=== PATIENT | male | born 1965 | race African-American/Black ===

== ENCOUNTER 2018-06-15 13:14 | Inpatient (IN) | payer OTHER ==
[2018-06-15 13:38] VITALS: BMI 29.2
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
[2018-06-15] MEDS ORDERED: MAG HYDROX/AL HYDROX/SIMETH 30 ML UNIT-DOSE CUP PO PRN (18:40)
[2018-06-15] MEDS ORDERED: MENTHOL/PHENOL 1 EACH UD MM PRN (18:40)
[2018-06-15] MEDS ORDERED: LOPERAMIDE HCL 2 MG CAPSULE PO PRN (18:40)
[2018-06-15] MEDS ORDERED: MAGNESIUM CITRATE 300 ML BOTTLE PO PRN (18:40)
[2018-06-15] MEDS ORDERED: P-EPHED 60MG/TRIPROLIDI 2.5MG TABLET PO PRN (18:40)
[2018-06-15] MEDS ORDERED: diazePAM 5 MG TABLET PO PRN (18:40)
[2018-06-15] MEDS ORDERED: hydrOXYzine PAMOATE 50 MG CAPSULE (FP) PO PRN (18:40)
[2018-06-15] MEDS ORDERED: guaiFENesin/D-METHORPHAN HB 10 ML UNIT-DOSE CUPS PO PRN (18:40)
[2018-06-15] MEDS ORDERED: NICOTINE POLACRILEX 2 MG GUM BC PRN (18:40)
[2018-06-15] MEDS ORDERED: MAGNESIUM HYDROX 2400MG/30ML ORAL SUSPENSION 30 ML CUP PO PRN (18:40)
[2018-06-15] MEDS ORDERED: ACETAMINOPHEN 325 MG TABLET (FP) PO PRN (18:40)
[2018-06-15] MEDS ORDERED: diazePAM 5 MG TABLET PO ONE (19:00)
[2018-06-15] MEDS: NICOTINE 21 MG/24 HOURS TOPICAL PATCH TD SCH (22:49)
[2018-06-15] MEDS: THIAMINE HCL 100 MG TABLET (FP) PO SCH (22:49)
[2018-06-15] MEDS: diazePAM 5 MG TABLET PO SCH (22:49)
[2018-06-15 23:01] LABS: URINE APPEARANCE CLEAR; URINE BILIRUBIN NEGATIVE (<2.0 mg/dL); URINE COLOR STRAW; URINE GLUCOSE (UA) 3+ (NEGATIVE); URINE KETONE NEGATIVE (NEGATIVE); URINE LEUK ESTERASE NEGATIVE (NEGATIVE); URINE NITRITE NEGATIVE (NEGATIVE); URINE UROBILINOGEN NEGATIVE mg/dL (0.2-1.0)
[2018-06-15 23:06] LABS: URINE PROTEIN 1+ (NEGATIVE)
[2018-06-15 23:13] LABS: URINE MUCUS RARE
[2018-06-16] MEDS: diazePAM 5 MG TABLET PO SCH ×3 (05:54→22:54)
[2018-06-16] MEDS ORDERED: INSULIN (NOVOLOG) ASPART 100 UNITS/ML 10ML VIAL ONE ×5 (06:53→21:57)
--- NOTE | 2018-06-16 07:46 | CONSULT ---
[facility] Psychiatric Consult - Data Date of interview: 06/16/18 Admission source: [facility] Identifying data: This is 53 years old male, obese, singlem unsmployed, homlee, on SSI, with psychiatric hospitalization history, with heroin,alcohol,cocaine, nicotine dependence,seeking detox,reporting withdrawal symptoms, Substance Abuse History: - Smoking Cessation. Smoking history: Current every day smoker. Have you smoked in the past 12 months: Yes. Aproximately how many cigarettes per day: 20. Cigars Per Day: 0. Hx Chewing Tobacco Use: No. Initiated information on smoking cessation: Yes. 'Breaking Loose' booklet given : 06/15/18. - Substance & Tx. History. Hx Alcohol Use: Yes. Hx Substance Use : Yes. Substance Use Type: Alcohol, Cocaine, Heroin. Hx Substance Use Treatment: Yes (04/11 in march completed). - Substances Abused. Heroin. Route: Inhalation. Frequency: 1-2 times per week. Amount used: 1 bag. Age of first use: 25. Date of Last Use: 06/13/18. Alcohol. Route: Oral. Frequency: Daily. Amount used: 2pints of whisky,bacardi/2 of 6packs of 12 ozs of beer. Age of first use: 12. Date of Last Use: 06/14/18. Cocaine. Route : Smoking. Frequency: Daily. Amount used: 200$. Age of first use: 25. Date of Last Use: 06/14/18 Medical History: Obesity, HTN, DM-1 Psychiatric History: Patient reports history of depression and anxiety, taking prior to admission Depakote 500mg po bid, reports most recent psychiatric admission on 2017 at [facility] for safety, [email or web address] mitivated to continue preadmission medications Physical/Sexual Abuse/Trauma History: Denies Additional Comment: Depakote 500mg po bid, Mental Status Exam - Mental Status Exam Alert and Oriented to: Place, Person Cognitive Function: Fair Patient Appearance: Well Groomed Mood: Apprehensive Affect: Mood Congruent Patient Behavior: Cooperative Speech Pattern: Appropriate Voice Loudness: Normal Thought Process: Goal Oriented Thought Disorder: Being Controlled Hallucinations: Denies Suicidal Ideation: Denies Homicidal Ideation: Denies Insight/Judgement: Fair Sleep: Difficulty falling asleep Appetite: Weight gain Muscle strength/Tone: Mild Hypotonicity Gait/Station: Normal Additional Comments: Depakote 500mg po bid, Psychiatric Findings - Problem List ([place] 1, 2,3) (1) Drug-induced mood disorder Current Visit: Yes Status: Acute (2) Bipolar disorder Current Visit: Yes Status: Suspected (3) Alcohol dependence Current Visit: Yes Status: Acute (4) Alcohol dependence with uncomplicated withdrawal Current Visit: Yes Status: Acute (5) Cocaine dependence Current Visit: Yes Status: Acute (6) Opioid dependence Current Visit: Yes Status: Acute - Initial Treatment Plan Initial Treatment Plan: Depakote 500mg po bid,
[2018-06-16] MEDS: INSULIN SLIDING SCALE (NOVOLOG) 1 VIAL SQ SCH ×4 (07:57→22:58)
[2018-06-16 09:57] LABS: ANION GAP 8 (8-16); BLOOD UREA NITROGEN 19 mg/dL (7-18); CALCIUM 8.3 mg/dL (8.5-10.1); CHLORIDE 103 mmol/L (98-107); CO2 29 mmol/L (21-32); SGPT/ALT 31 U/L (12-78); SODIUM 140 mmol/L (136-145)
[2018-06-16 10:00] LABS: ALK PHOS 85 U/L (45-117); BILIRUBIN,TOTAL 0.3 mg/dL (0.2-1.0); TOT PROT 6.1 g/dl (6.4-8.2)
[2018-06-16 10:07] LABS: POTASSIUM 4.1 mmol/L (3.5-5.1); SGOT/AST 22 U/L (15-37)
[2018-06-16 10:23] LABS: HEMATOCRIT 44.2 % (35.4-49); HEMOGLOBIN 14.6 GM/dL (11.7-16.9); MCH 27.3 pg (25.7-33.7); MCHC 33.1 g/dl (32.0-35.9); MEAN CELL VOLUME 82.5 fl (80-96); MEAN PLT VOLUME 11.2 fl (7.5-11.1); PLATELET COUNT 192 K/MM3 (134-434); RBC 5.35 M/mm3 (4.00-5.60); RDW 15.4 % (11.9-15.9); WHITE BLOOD COUNT 7.9 K/mm3 (4.0-10.0)
[2018-06-16] MEDS: NICOTINE 21 MG/24 HOURS TOPICAL PATCH TD SCH (10:34)
[2018-06-16] MEDS: PRENATAL VITAMINS W/ FOLIC ACID TABLET (FP) PO SCH (10:38)
[2018-06-16 10:47] LABS: GLUCOSE,RANDOM 321 mg/dL (74-106)
--- NOTE | 2018-06-16 11:32 | PN ---
S CIWA - CIWA Score Nausea/Vomitin Muscle Tremors: 3 Anxiety: 3 Agitation: 2 Paroxysmal Sweats: 1-Minimal Palms Moist Orientation: 0-Oriented Tacttile Disturbances: 1-Very Mild Itch/Numbness Auditory Disturbances: 1-Very Mild Visual Disturbances: 0-None Headache: 2-Mild CIWA-Ar Total Score: 16 S Progress Note (SOAP) Subjective: alert,irritable,anxious,interrupted sleep,tremor,pain in the body Objective: 06/16/18 11:28 Vital Signs Temperature 98.1 F 06/16/18 06:00 Pulse Rate 84 06/16/18 06:00 Respiratory Rate 20 06/16/18 06:00 Blood Pressure 156/101 06/16/18 06:00 O2 Sat by Pulse Oximetry (%) ekg nsr qt/qrc 406/431 no chest pain,no sob,no dizziness Laboratory Last Values WBC 7.9 K/mm3 (4.0-10.0) 06/16/18 07:00 RBC 5.35 M/mm3 (4.00-5.60) 06/16/18 07:00 Hgb 14.6 GM/dL (11.7-16.9) 06/16/18 07:00 Hct 44.2 % (35.4-49) 06/16/18 07:00 MCV 82.5 fl (80-96) 06/16/18 07:00 MCH 27.3 pg (25.7-33.7) 06/16/18 07:00 MCHC 33.1 g/dl (32.0-35.9) 06/16/18 07:00 RDW 15.4 % (11.9-15.9) 06/16/18 07:00 Sodium 140 mmol/L (136-145) 06/16/18 07:00 Potassium 4.1 mmol/L (3.5-5.1) 06/16/18 07:00 Chloride 103 mmol/L (98-107) 06/16/18 07:00 Carbon Dioxide 29 mmol/L (21-32) 06/16/18 07:00 Anion Gap 8 (8-16) 06/16/18 07:00 BUN 19 mg/dL (7-18) H 06/16/18 07:00 Creatinine 2.0 mg/dL (0.7-1.3) H 06/16/18 07:00 Creat Clearance w eGFR 35.13 (>60) 06/16/18 07:00 POC Glucometer 317 UNITS (80-120) 06/16/18 05:55 Random Glucose 321 mg/dL (74-106) H* 06/16/18 07:00 Calcium 8.3 mg/dL (8.5-10.1) L 06/16/18 07:00 Total Bilirubin 0.3 mg/dL (0.2-1.0) 06/16/18 07:00 AST 22 U/L (15-37) 06/16/18 07:00 ALT 31 U/L (12-78) 06/16/18 07:00 Alkaline Phosphatase 85 U/L (45-117) 06/16/18 07:00 Total Protein 6.1 g/dl (6.4-8.2) L 06/16/18 07:00 Albumin 3.0 g/dl (3.4-5.0) L 06/16/18 07:00 Urine Color Straw 06/15/18 22:40 Urine Appearance Clear 06/15/18 22:40 Urine pH 6.0 (5.0-8.0) 06/15/18 22:40 Ur Specific [place] 1.018 (1.001-1.035) 06/15/18 22:40 Urine Protein 1+ (NEGATIVE) H 06/15/18 22:40 Urine Glucose (UA) 3+ (NEGATIVE) H 06/15/18 22:40 Urine Ketones Negative (NEGATIVE) 06/15/18 22:40 Urine Blood Negative (NEGATIVE) 06/15/18 22:40 Urine Nitrite Negative (NEGATIVE) 06/15/18 22:40 Urine Bilirubin Negative (<2.0 mg/dL) 06/15/18 22:40 Urine Urobilinogen Negative mg/dL (0.2-1.0) 06/15/18 22:40 Ur Leukocyte Esterase Negative (NEGATIVE) 06/15/18 22:40 Urine WBC (Auto) <1 /hpf (3-5) 06/15/18 22:40 Urine RBC (Auto) None /hpf (0-3) 06/15/18 22:40 Urine Mucus Rare 06/15/18 22:40 RPR Titer Nonreactive (NONREACTIVE) 06/16/18 07:00 Assessment: 06/16/18 11:31 withdrawal symptom Plan: continue detox,bgm monitoring with insulin coverage,cane ambulation
--- NOTE | 2018-06-16 11:43 | EKG ---
Test Reason : Blood Pressure : / mmHG Vent. Rate : 068 BPM Atrial Rate : 068 BPM P-R Int : 138 ms QRS Dur : 088 ms QT Int : 406 ms P-R-T Axes : 023 002 -15 degrees QTc Int : 431 ms NORMAL SINUS RHYTHM POSSIBLE LEFT ATRIAL ENLARGEMENT CANNOT RULE OUT ANTERIOR INFARCT , AGE UNDETERMINED ABNORMAL ECG NO PREVIOUS ECGS AVAILABLE Confirmed by FRIDA RICHARDSON MD ([id number]) on 06/16/2018 11:42:57 AM Referred By: Confirmed By:FRIDA RICHARDSON MD
--- NOTE | 2018-06-16 14:44 | EKG ---
Test Reason : Blood Pressure : / mmHG Vent. Rate : 066 BPM Atrial Rate : 066 BPM P-R Int : 134 ms QRS Dur : 092 ms QT Int : 398 ms P-R-T Axes : 018 -04 -07 degrees QTc Int : 417 ms NORMAL SINUS RHYTHM NORMAL ECG WHEN COMPARED WITH ECG OF 15-JUN-2018 20:13, NO SIGNIFICANT CHANGE WAS FOUND Confirmed by FRIDA RICHARDSON MD ([id number]) on 06/16/2018 2:43:54 PM Referred By: Confirmed By:FRIDA RICHARDSON MD
[2018-06-16] MEDS: THIAMINE HCL 100 MG TABLET (FP) PO SCH (22:54)
[2018-06-16] MEDS: INSULIN (LEVEMIR) 100 UNITS/ML UNITS SQ SCH (22:58)
[2018-06-17] MEDS: INSULIN SLIDING SCALE (NOVOLOG) 1 VIAL SQ SCH ×4 (08:04→23:04)
--- NOTE | 2018-06-17 10:31 | PN ---
S CIWA - CIWA Score Nausea/Vomitin Muscle Tremors: 3 Anxiety: 2 Agitation: 2 Paroxysmal Sweats: 1-Minimal Palms Moist Orientation: 0-Oriented Tacttile Disturbances: 1-Very Mild Itch/Numbness Auditory Disturbances: 1-Very Mild Visual Disturbances: 0-None Headache: 2-Mild CIWA-Ar Total Score: 15 S Progress Note (SOAP) Subjective: alert,irritable,anxious,interrupted sleep,tremor Objective: 06/17/18 10:28 Vital Signs Temperature 97.3 F L 06/17/18 09:08 Pulse Rate 65 06/17/18 09:08 Respiratory Rate 18 06/17/18 09:08 Blood Pressure 146/84 06/17/18 09:08 O2 Sat by Pulse Oximetry (%) 06/17/18 10:29 Laboratory Last Values WBC 7.9 K/mm3 (4.0-10.0) 06/16/18 07:00 RBC 5.35 M/mm3 (4.00-5.60) 06/16/18 07:00 Hgb 14.6 GM/dL (11.7-16.9) 06/16/18 07:00 Hct 44.2 % (35.4-49) 06/16/18 07:00 MCV 82.5 fl (80-96) 06/16/18 07:00 MCH 27.3 pg (25.7-33.7) 06/16/18 07:00 MCHC 33.1 g/dl (32.0-35.9) 06/16/18 07:00 RDW 15.4 % (11.9-15.9) 06/16/18 07:00 Plt Count 192 K/MM3 (134-434) 06/16/18 07:00 MPV 11.2 fl (7.5-11.1) H 06/16/18 07:00 Sodium 140 mmol/L (136-145) 06/16/18 07:00 Potassium 4.1 mmol/L (3.5-5.1) 06/16/18 07:00 Chloride 103 mmol/L (98-107) 06/16/18 07:00 Carbon Dioxide 29 mmol/L (21-32) 06/16/18 07:00 Anion Gap 8 (8-16) 06/16/18 07:00 BUN 19 mg/dL (7-18) H 06/16/18 07:00 Creatinine 2.0 mg/dL (0.7-1.3) H 06/16/18 07:00 Creat Clearance w eGFR 35.13 (>60) 06/16/18 07:00 POC Glucometer 195 UNITS (80-120) 06/17/18 05:52 Random Glucose 321 mg/dL (74-106) H* 06/16/18 07:00 Calcium 8.3 mg/dL (8.5-10.1) L 06/16/18 07:00 Total Bilirubin 0.3 mg/dL (0.2-1.0) 06/16/18 07:00 AST 22 U/L (15-37) 06/16/18 07:00 ALT 31 U/L (12-78) 06/16/18 07:00 Alkaline Phosphatase 85 U/L (45-117) 06/16/18 07:00 Total Protein 6.1 g/dl (6.4-8.2) L 06/16/18 07:00 Albumin 3.0 g/dl (3.4-5.0) L 06/16/18 07:00 Urine Color Straw 06/15/18 22:40 Urine Appearance Clear 06/15/18 22:40 Urine pH 6.0 (5.0-8.0) 06/15/18 22:40 Ur Specific [place] 1.018 (1.001-1.035) 06/15/18 22:40 Urine Protein 1+ (NEGATIVE) H 06/15/18 22:40 Urine Glucose (UA) 3+ (NEGATIVE) H 06/15/18 22:40 Urine Ketones Negative (NEGATIVE) 06/15/18 22:40 Urine Blood Negative (NEGATIVE) 06/15/18 22:40 Urine Nitrite Negative (NEGATIVE) 06/15/18 22:40 Urine Bilirubin Negative (<2.0 mg/dL) 06/15/18 22:40 Urine Urobilinogen Negative mg/dL (0.2-1.0) 06/15/18 22:40 Ur Leukocyte Esterase Negative (NEGATIVE) 06/15/18 22:40 Urine WBC (Auto) <1 /hpf (3-5) 06/15/18 22:40 Urine RBC (Auto) None /hpf (0-3) 06/15/18 22:40 Urine Mucus Rare 06/15/18 22:40 RPR Titer Nonreactive (NONREACTIVE) 06/16/18 07:00 Assessment: 06/17/18 10:30 withdrawal symptom Plan: continue detox
[2018-06-17] MEDS: diazePAM 5 MG TABLET PO SCH ×2 (10:38→22:44)
[2018-06-17] MEDS: PRENATAL VITAMINS W/ FOLIC ACID TABLET (FP) PO SCH (10:38)
[2018-06-17] MEDS: NICOTINE 21 MG/24 HOURS TOPICAL PATCH TD SCH (10:39)
[2018-06-17] MEDS ORDERED: INSULIN (NOVOLOG) ASPART 100 UNITS/ML 10ML VIAL ONE (12:00)
[2018-06-17] MEDS: IBUPROFEN 400 MG TABLET (FP) PO PRN (14:14)
[2018-06-17] MEDS: MELATONIN 5 MG TABLETS PO PRN (22:44)
[2018-06-17] MEDS: THIAMINE HCL 100 MG TABLET (FP) PO SCH (22:44)
[2018-06-17] MEDS: INSULIN (LEVEMIR) 100 UNITS/ML UNITS SQ SCH (22:45)
[2018-06-18] MEDS: INSULIN SLIDING SCALE (NOVOLOG) 1 VIAL SQ SCH ×4 (08:00→22:41)
[2018-06-18] MEDS: NICOTINE 21 MG/24 HOURS TOPICAL PATCH TD SCH (10:25)
[2018-06-18] MEDS: PRENATAL VITAMINS W/ FOLIC ACID TABLET (FP) PO SCH (10:25)
[2018-06-18] MEDS: diazePAM 5 MG TABLET PO SCH ×2 (10:25→22:41)
--- NOTE | 2018-06-18 11:30 | PN ---
S Progress Note (SOAP) Subjective: alert,irritable,anxious,interrupted sleep Objective: 06/18/18 11:28 Vital Signs Temperature 97.2 F L 06/18/18 09:58 Pulse Rate 63 06/18/18 09:58 Respiratory Rate 16 06/18/18 09:58 Blood Pressure 138/85 06/18/18 09:58 O2 Sat by Pulse Oximetry (%) 06/18/18 11:33 bgm 196 Assessment: 06/18/18 11:33 withdrawal symptom Plan: continue detox,chest xray today for positive ppd,discharge in am
[2018-06-18] MEDS ORDERED: INSULIN (NOVOLOG) ASPART 100 UNITS/ML 10ML VIAL ONE ×3 (11:55→22:43)
[2018-06-18] MEDS: THIAMINE HCL 100 MG TABLET (FP) PO SCH (22:41)
[2018-06-18] MEDS: INSULIN (LEVEMIR) 100 UNITS/ML UNITS SQ SCH (22:45)
[2018-06-18] MEDS: MELATONIN 5 MG TABLETS PO PRN (22:45)
[2018-06-18] MEDS: IBUPROFEN 400 MG TABLET (FP) PO PRN (22:47)
[2018-06-19] MEDS: INSULIN SLIDING SCALE (NOVOLOG) 1 VIAL SQ SCH (08:14)
--- NOTE | 2018-06-19 09:19 | PN ---
S Progress Note (SOAP) Subjective: alert,no compliant Objective: 06/19/18 09:16 Vital Signs Temperature 97.3 F L 06/19/18 07:08 Pulse Rate 72 06/19/18 07:08 Respiratory Rate 18 06/19/18 07:08 Blood Pressure 159/89 06/19/18 07:08 O2 Sat by Pulse Oximetry (%) Assessment: 06/19/18 09:17 detox completed,no withdrawal symptom Plan: discharge today,follow up with after care program as arrangement
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
[2018-06-19] MEDS: PRENATAL VITAMINS W/ FOLIC ACID TABLET (FP) PO SCH (09:26)
[2018-06-19] MEDS: NICOTINE 21 MG/24 HOURS TOPICAL PATCH TD SCH (09:27)
[2018-06-19 09:59] VITALS: BP 167/94; PULSE 64; TEMP 96.4
[2018-06-19] MEDS ORDERED: diazePAM 5 MG TABLET PO SCH (10:00)
== END 2018-06-19 10:45 | disposition home or self-care (01) | DRG 773 ==
LOC: YASAS 13:14 → Y6N 18:40
PROVIDERS: ADMIT Surgery; ATTEND Surgery
PROC: HZ2ZZZZ Detoxification Services for Substance Abuse Treatment (ICD-10-PCS; principal; 2018-06-15)
DX: F11.20 Opioid dependence, uncomplicated (principal); F10.230 Alcohol dependence with withdrawal, uncomplicated; F14.20 Cocaine dependence, uncomplicated; F17.210 Nicotine dependence, cigarettes, uncomplicated; F19.24 Other psychoactive substance dependence with psychoactive substance-induced mood disorder; F31.9 Bipolar disorder, unspecified; I10 Essential (primary) hypertension; E11.9 Type 2 diabetes mellitus without complications; Z79.4 Long term (current) use of insulin; Q60.0 Renal agenesis, unilateral; Z87.828 Personal history of other (healed) physical injury and trauma; Z91.14 Patient's other noncompliance with medication regimen; Z59.0 Homelessness
CPT/HCPCS: 36415; 71046-TC-FY; 80053; 81003; 81015; 82962; 85027; 86593; 93005; 93010

== ENCOUNTER 2018-12-02 12:12 | Inpatient (IN) | payer OTHER ==
[2018-12-02 12:31] VITALS: BMI 29.5
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
[2018-12-02] MEDS ORDERED: NICOTINE POLACRILEX 2 MG GUM BUC PRN (14:43)
[2018-12-02] MEDS ORDERED: P-EPHED 60MG/TRIPROLIDI 2.5MG TABLET PO PRN (14:43)
[2018-12-02] MEDS ORDERED: guaiFENesin/D-METHORPHAN HB 10 ML UNIT-DOSE CUPS PO PRN (14:43)
[2018-12-02] MEDS ORDERED: MENTHOL/PHENOL 1 EACH UD MM PRN (14:43)
[2018-12-02] MEDS ORDERED: MAGNESIUM CITRATE 300 ML BOTTLE PO PRN (14:43)
[2018-12-02] MEDS ORDERED: MAG HYDROX/AL HYDROX/SIMETH 30 ML UNIT-DOSE CUP PO PRN (14:43)
[2018-12-02] MEDS ORDERED: MAGNESIUM HYDROX 2400MG/30ML ORAL SUSPENSION 30 ML CUP PO PRN (14:43)
[2018-12-02] MEDS ORDERED: ACETAMINOPHEN 325 MG TABLET (FP) PO PRN (14:43)
[2018-12-02] MEDS: diazePAM 5 MG TABLET PO PRN (15:53)
[2018-12-02] MEDS: INSULIN SLIDING SCALE (NOVOLOG) 1 VIAL SQ SCH ×2 (17:03→21:39)
[2018-12-02] MEDS: diazePAM 5 MG TABLET PO SCH (21:38)
[2018-12-02] MEDS: cloNIDine HCL 0.1 MG TABLET PO PRN (21:38)
[2018-12-02] MEDS: THIAMINE HCL 100 MG TABLET (FP) PO SCH (21:38)
[2018-12-02] MEDS: BACITRACIN/POLYMYXIN B SULFATE 15 GM TUBE TP SCH (21:38)
[2018-12-02] MEDS: INSULIN (LEVEMIR) 100 UNITS/ML UNITS SQ SCH (21:39)
[2018-12-02] MEDS ORDERED: MELATONIN 5 MG TABLETS PO PRN (22:00)
[2018-12-03] MEDS: diazePAM 5 MG TABLET PO SCH ×3 (05:36→21:36)
[2018-12-03] MEDS: INSULIN SLIDING SCALE (NOVOLOG) 1 VIAL SQ SCH ×4 (06:00→21:16)
[2018-12-03 10:24] LABS: HEMATOCRIT 47.5 % (35.4-49); HEMOGLOBIN 14.7 GM/dL (11.7-16.9); MCH 26.1 pg (25.7-33.7); MCHC 31.1 g/dl (32.0-35.9); MEAN CELL VOLUME 83.9 fl (80-96); MEAN PLT VOLUME 11.2 fl (7.5-11.1); PLATELET COUNT 186 K/MM3 (134-434); RBC 5.66 M/mm3 (4.00-5.60); RDW 15.4 % (11.9-15.9); WHITE BLOOD COUNT 9.5 K/mm3 (4.0-10.0)
[2018-12-03] MEDS: BACITRACIN/POLYMYXIN B SULFATE 15 GM TUBE TP SCH ×2 (10:37→21:36)
[2018-12-03] MEDS: PRENATAL VITAMINS W/ FOLIC ACID TABLET (FP) PO SCH (10:37)
[2018-12-03 11:02] LABS: ALBUMIN 3.8 g/dl (3.4-5.0); ALK PHOS 103 U/L (45-117); ANION GAP 9 MMOL/L (8-16); BILIRUBIN,TOTAL 0.8 mg/dL (0.2-1); BLOOD UREA NITROGEN 26 mg/dL (7-18); CALCIUM 8.8 mg/dL (8.5-10.1); CHLORIDE 98 mmol/L (98-107); CO2 28 mmol/L (21-32); CREATININE 2.8 mg/dL (0.55-1.3); POTASSIUM 5.2 mmol/L (3.5-5.1); SGOT/AST 21 U/L (15-37); SGPT/ALT 32 U/L (13-61); SODIUM 135 mmol/L (136-145); TOT PROT 7.4 g/dl (6.4-8.2)
[2018-12-03 11:06] LABS: GLUCOSE,RANDOM 400 mg/dL (74-106)
--- NOTE | 2018-12-03 11:18 | PN ---
S CIWA - CIWA Score Nausea/Vomitin-Mild Nausea/No Vomiting Muscle Tremors: 4-Moderate,w/Arms Extend Anxiety: 3 Agitation: 3 Paroxysmal Sweats: 1-Minimal Palms Moist Orientation: 1-Uncertain about Date Tacttile Disturbances: 0-None Auditory Disturbances: 0-None Visual Disturbances: 0-None Headache: 2-Mild CIWA-Ar Total Score: 15 BHS Progress Note (SOAP) Subjective: long history of insulin dependent diabetes none adherence to anti hyperglycemic medications recent DM management taking lantus 70 unit sc daily currently levemir 70 unit plus bgm with insulin coverage report tremor sweating anxiety restlessness irritable Objective: 12/03/18 11:18 Vital Signs Temperature 96.8 F L 12/03/18 09:13 Pulse Rate 61 12/03/18 09:13 Respiratory Rate 18 12/03/18 09:13 Blood Pressure 114/80 12/03/18 09:13 O2 Sat by Pulse Oximetry (%) Laboratory Last Values WBC 9.5 K/mm3 (4.0-10.0) 12/03/18 05:45 RBC 5.66 M/mm3 (4.00-5.60) H 12/03/18 05:45 Hgb 14.7 GM/dL (11.7-16.9) 12/03/18 05:45 Hct 47.5 % (35.4-49) 12/03/18 05:45 MCV 83.9 fl (80-96) 12/03/18 05:45 MCH 26.1 pg (25.7-33.7) 12/03/18 05:45 MCHC 31.1 g/dl (32.0-35.9) L 12/03/18 05:45 RDW 15.4 % (11.9-15.9) 12/03/18 05:45 Plt Count 186 K/MM3 (134-434) 12/03/18 05:45 MPV 11.2 fl (7.5-11.1) H 12/03/18 05:45 Sodium 135 mmol/L (136-145) L 12/03/18 05:45 Potassium 5.2 mmol/L (3.5-5.1) H 12/03/18 05:45 Chloride 98 mmol/L (98-107) 12/03/18 05:45 Carbon Dioxide 28 mmol/L (21-32) 12/03/18 05:45 Anion Gap 9 MMOL/L (8-16) 12/03/18 05:45 BUN 26 mg/dL (7-18) H 12/03/18 05:45 Creatinine 2.8 mg/dL (0.55-1.3) H 12/03/18 05:45 Creat Clearance w eGFR 23.82 (>60) 12/03/18 05:45 POC Glucometer 407 UNITS (80-120) 12/03/18 10:39 Random Glucose 400 mg/dL (74-106) H* 12/03/18 05:45 Calcium 8.8 mg/dL (8.5-10.1) 12/03/18 05:45 Total Bilirubin 0.8 mg/dL (0.2-1) 12/03/18 05:45 AST 21 U/L (15-37) 12/03/18 05:45 ALT 32 U/L (13-61) 12/03/18 05:45 Alkaline Phosphatase 103 U/L (45-117) 12/03/18 05:45 Total Protein 7.4 g/dl (6.4-8.2) 12/03/18 05:45 Albumin 3.8 g/dl (3.4-5.0) 12/03/18 05:45 HIV 1&2 Antibody Screen Negative 12/02/18 15:20 HIV P24 Antigen Negative 12/02/18 15:20 lab noted repeat camp recommend the patient seeking nephrology after discharged from detox inform negative health consequences of alcohol 12/03/18 11:20 Assessment: 12/03/18 11:21 withdrawal sx renal insufficient Plan: continue detox discuss diabetes hypertension induced renal problems
[2018-12-03] MEDS: THIAMINE HCL 100 MG TABLET (FP) PO SCH (21:35)
[2018-12-03] MEDS: cloNIDine HCL 0.1 MG TABLET PO PRN (21:36)
[2018-12-03] MEDS: INSULIN (LEVEMIR) 100 UNITS/ML UNITS SQ SCH (21:36)
[2018-12-04] MEDS: INSULIN SLIDING SCALE (NOVOLOG) 1 VIAL SQ SCH ×4 (07:33→21:35)
[2018-12-04] MEDS: diazePAM 5 MG TABLET PO PRN (08:17)
[2018-12-04] MEDS: BACITRACIN/POLYMYXIN B SULFATE 15 GM TUBE TP SCH ×2 (10:30→21:36)
[2018-12-04] MEDS: PRENATAL VITAMINS W/ FOLIC ACID TABLET (FP) PO SCH (10:30)
[2018-12-04] MEDS: diazePAM 5 MG TABLET PO SCH ×2 (10:31→21:36)
[2018-12-04 10:53] LABS: ALBUMIN 3.1 g/dl (3.4-5.0); ALK PHOS 87 U/L (45-117); ANION GAP 9 MMOL/L (8-16); BILIRUBIN,TOTAL 0.5 mg/dL (0.2-1); BLOOD UREA NITROGEN 33 mg/dL (7-18); CALCIUM 7.7 mg/dL (8.5-10.1); CHLORIDE 104 mmol/L (98-107); CO2 27 mmol/L (21-32); GLUCOSE,RANDOM 253 mg/dL (74-106); POTASSIUM 3.7 mmol/L (3.5-5.1); SGOT/AST 13 U/L (15-37); SGPT/ALT 24 U/L (13-61); SODIUM 140 mmol/L (136-145); TOT PROT 6.3 g/dl (6.4-8.2)
--- NOTE | 2018-12-04 14:27 | PN ---
[facility] CIWA - CIWA Score Nausea/Vomitin-No Nausea/No Vomiting Muscle Tremors: 2 Anxiety: 2 Agitation: 2 Paroxysmal Sweats: 1-Minimal Palms Moist Orientation: 1-Uncertain about Date Tacttile Disturbances: 0-None Auditory Disturbances: 0-None Visual Disturbances: 0-None Headache: 2-Mild CIWA-Ar Total Score: 10 S Progress Note (SOAP) Subjective: patient voice prefer to begin rehab tomorrow 12/05/18 stated that little sweat less tremor mild gi distress Objective: 12/04/18 14:33 Vital Signs Temperature 97.3 F L 12/04/18 13:12 Pulse Rate 73 12/04/18 13:12 Respiratory Rate 18 12/04/18 13:12 Blood Pressure 156/89 12/04/18 13:12 O2 Sat by Pulse Oximetry (%) Laboratory Last Values WBC 9.5 K/mm3 (4.0-10.0) 12/03/18 05:45 RBC 5.66 M/mm3 (4.00-5.60) H 12/03/18 05:45 Hgb 14.7 GM/dL (11.7-16.9) 12/03/18 05:45 Hct 47.5 % (35.4-49) 12/03/18 05:45 MCV 83.9 fl (80-96) 12/03/18 05:45 MCH 26.1 pg (25.7-33.7) 12/03/18 05:45 MCHC 31.1 g/dl (32.0-35.9) L 12/03/18 05:45 RDW 15.4 % (11.9-15.9) 12/03/18 05:45 Plt Count 186 K/MM3 (134-434) 12/03/18 05:45 MPV 11.2 fl (7.5-11.1) H 12/03/18 05:45 Sodium 140 mmol/L (136-145) 12/04/18 07:00 Potassium 3.7 mmol/L (3.5-5.1) 12/04/18 07:00 Chloride 104 mmol/L (98-107) 12/04/18 07:00 Carbon Dioxide 27 mmol/L (21-32) 12/04/18 07:00 Anion Gap 9 MMOL/L (8-16) 12/04/18 07:00 BUN 33 mg/dL (7-18) H 12/04/18 07:00 Creatinine 2.0 mg/dL (0.55-1.3) H 12/04/18 07:00 Creat Clearance w eGFR 35.13 (>60) 12/04/18 07:00 POC Glucometer 428 UNITS (80-120) 12/04/18 12:08 Random Glucose 253 mg/dL (74-106) H 12/04/18 07:00 Hemoglobin A1c % 12.2 % (4.2-6.3) H 12/04/18 07:00 Calcium 7.7 mg/dL (8.5-10.1) L 12/04/18 07:00 Total Bilirubin 0.5 mg/dL (0.2-1) 12/04/18 07:00 AST 13 U/L (15-37) L 12/04/18 07:00 ALT 24 U/L (13-61) 12/04/18 07:00 Alkaline Phosphatase 87 U/L (45-117) 12/04/18 07:00 Total Protein 6.3 g/dl (6.4-8.2) L 12/04/18 07:00 Albumin 3.1 g/dl (3.4-5.0) L 12/04/18 07:00 RPR Titer Nonreactive (NONREACTIVE) 12/03/18 05:45 HIV 1&2 Antibody Screen Negative 12/02/18 15:20 HIV P24 Antigen Negative 12/02/18 15:20 lab noted renal insufficiency Assessment: 12/04/18 14:34 mild withdrawal sx Plan: continue detox
[2018-12-04] MEDS: cloNIDine HCL 0.1 MG TABLET PO PRN (19:40)
[2018-12-04] MEDS: INSULIN (LEVEMIR) 100 UNITS/ML UNITS SQ SCH (21:36)
[2018-12-04] MEDS: THIAMINE HCL 100 MG TABLET (FP) PO SCH (21:36)
[2018-12-05] MEDS: INSULIN SLIDING SCALE (NOVOLOG) 1 VIAL SQ SCH (06:31)
[2018-12-05] MEDS ORDERED: INSULIN SLIDING SCALE (NOVOLOG) 1 VIAL SQ ONE (06:32)
[2018-12-05] MEDS: PRENATAL VITAMINS W/ FOLIC ACID TABLET (FP) PO SCH (09:07)
[2018-12-05] MEDS: diazePAM 5 MG TABLET PO SCH (09:07)
[2018-12-05 09:34] VITALS: BP 145/93; PULSE 61; TEMP 98.9
[2018-12-05] MEDS: BACITRACIN/POLYMYXIN B SULFATE 15 GM TUBE TP SCH (09:54)
--- NOTE | 2018-12-05 15:14 | DS ---
[facility] Detox Discharge Summary Admission Date: 12/02/18 Discharge Date: 12/05/18 - History Present History: Alcohol Dependence Pertinent Past History: Pt here for alcohol detox treatment. Did well- pt states going to [facility] for further treatment. States that he does not need any discharge meds- has this at home. Pt will f/u with PCP - Physical Exam Results Vital Signs: Vital Signs Temperature 98.9 F 12/05/18 09:33 Pulse Rate 61 12/05/18 09:33 Respiratory Rate 20 12/05/18 09:33 Blood Pressure 145/93 12/05/18 09:33 O2 Sat by Pulse Oximetry (%) - Treatment Hospital Course: Detox Protocol Followed, Detoxed Safely, Responded well, Discharged Condition Good - Medication Discharge Medications: Ambulatory Orders Insulin Glargine,Hum.rec.anlog [Lantus] 70 unit SQ HS 06/15/18 Insulin (Levemir) [Levemir Vial] 0 units SQ TID PRN 12/02/18 - AMA Did Patient Leave Against Medical Advice: No
[2018-12-06] MEDS ORDERED: diazePAM 5 MG TABLET PO SCH (10:00)
== END 2018-12-05 10:37 | disposition home or self-care (01) | DRG 774 ==
LOC: YASAS 12:12 → Y3N 14:51
PROC: HZ2ZZZZ Detoxification Services for Substance Abuse Treatment (ICD-10-PCS; principal; 2018-12-02)
DX: F10.230 Alcohol dependence with withdrawal, uncomplicated (principal); F14.20 Cocaine dependence, uncomplicated; F17.210 Nicotine dependence, cigarettes, uncomplicated; I10 Essential (primary) hypertension; N28.9 Disorder of kidney and ureter, unspecified; E11.9 Type 2 diabetes mellitus without complications; Z79.4 Long term (current) use of insulin; Z59.0 Homelessness
CPT/HCPCS: 36415; 80053; 82962; 83036; 85027; 86593; 87389; J0735

== ENCOUNTER 2019-02-14 23:21 | Inpatient (IN) | payer OTHER ==
[2019-02-14 23:43] VITALS: BMI 32.8
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
[2019-02-14] MEDS ORDERED: INSULIN (LEVEMIR) 100 UNITS/ML UNITS SQ PRN (23:54)
[2019-02-15] MEDS ORDERED: chlordiazePOXIDE HCL 25 MG CAPSULE PO ONE (00:04)
[2019-02-15] MEDS ORDERED: IBUPROFEN 400 MG TABLET (FP) PO PRN (00:04)
[2019-02-15] MEDS ORDERED: DICYCLOMINE HCL 10 MG CAPSULE PO PRN (00:04)
[2019-02-15] MEDS ORDERED: MENTHOL/PHENOL 1 EACH UD MM PRN (00:04)
[2019-02-15] MEDS ORDERED: hydrOXYzine PAMOATE 25 MG CAPSULE (FP) PO PRN (00:04)
[2019-02-15] MEDS ORDERED: BISMUTH SUBSALICYLATE 524 MG/30 ML UD PO PRN (00:04)
[2019-02-15] MEDS ORDERED: METHOCARBAMOL 500 MG TABLET PO PRN (00:04)
[2019-02-15] MEDS ORDERED: P-EPHED 60MG/TRIPROLIDI 2.5MG TABLET PO PRN (00:04)
[2019-02-15] MEDS ORDERED: MAG HYDROX/AL HYDROX/SIMETH 30 ML UNIT-DOSE CUP PO PRN (00:04)
[2019-02-15] MEDS ORDERED: chlordiazePOXIDE HCL 25 MG CAPSULE PO PRN (00:04)
[2019-02-15] MEDS ORDERED: ACETAMINOPHEN 325 MG TABLET (FP) PO PRN ×2 (00:04)
[2019-02-15] MEDS ORDERED: NICOTINE POLACRILEX 2 MG GUM BUC PRN (00:04)
[2019-02-15] MEDS ORDERED: MAGNESIUM HYDROX 2400MG/30ML ORAL SUSPENSION 30 ML CUP PO PRN (00:04)
[2019-02-15] MEDS ORDERED: guaiFENesin 200 MG/10 ML 10 ML UNIT-DOSE CUPS PO PRN (00:04)
[2019-02-15] MEDS ORDERED: ONDANSETRON *ODT* 4 MG TABLET SL PRN (00:04)
[2019-02-15] MEDS ORDERED: MAGNESIUM CITRATE 300 ML BOTTLE PO PRN (00:04)
[2019-02-15] MEDS ORDERED: cloNIDine HCL 0.1 MG TABLET PO ONE (00:06)
[2019-02-15] MEDS ORDERED: INSULIN (LEVEMIR) 100 UNITS/ML UNITS SQ ONE (00:43)
[2019-02-15] MEDS ORDERED: INSULIN (NOVOLOG) ASPART 100 UNITS/ML 10ML VIAL SQ ONE ×2 (00:44→17:25)
[2019-02-15] MEDS ORDERED: INSULIN SLIDING SCALE (NOVOLOG) 1 VIAL SQ ONE (00:56)
[2019-02-15] MEDS: chlordiazePOXIDE HCL 25 MG CAPSULE PO SCH ×4 (05:49→22:13)
--- NOTE | 2019-02-15 07:22 | PN ---
[facility] Progress Note Note: REPORTS HX/O HTN, ON LISINOPRIL AND AMLODIPINE. DOES NOT REMEMBER DOSE HE IS NON COMPLAINT. ELEVATED B/P READINGS. WILL START LISINOPRIL 10 MG AND CONT TO MONITOR CLINICALLY. Vital Signs Temperature 96.9 F L 02/15/19 06:24 Pulse Rate 69 02/15/19 06:24 Respiratory Rate 18 02/15/19 06:28 Blood Pressure 151/92 02/15/19 06:24 O2 Sat by Pulse Oximetry (%)
[2019-02-15] MEDS ORDERED: LISINOPRIL 10 MG TABLET (FP) PO SCH ×2 (10:00→12:00)
[2019-02-15] MEDS: PRENATAL VITAMINS W/ FOLIC ACID TABLET (FP) PO SCH (11:42)
[2019-02-15] MEDS: NICOTINE 21 MG/24 HOURS TOPICAL PATCH TD SCH (11:43)
--- NOTE | 2019-02-15 11:56 | PN ---
S CIWA - CIWA Score Nausea/Vomitin-Mild Nausea/No Vomiting Muscle Tremors: 4-Moderate,w/Arms Extend Anxiety: 4-Mod. Anxious/Guarded Agitation: 4-Moderately Restless Paroxysmal Sweats: 1-Minimal Palms Moist Orientation: 3-Disoriented Date>2 days Tacttile Disturbances: 0-None Auditory Disturbances: 1-Very Mild Visual Disturbances: 0-None Headache: 2-Mild CIWA-Ar Total Score: 20 [facility] Progress Note (SOAP) Subjective: mild headache no blurred vision no dizziness no chest pain Objective: 02/15/19 11:56 Vital Signs Temperature 97.5 F L 02/15/19 09:53 Pulse Rate 77 02/15/19 09:53 Respiratory Rate 18 02/15/19 09:53 Blood Pressure 121/78 02/15/19 09:53 O2 Sat by Pulse Oximetry (%) Laboratory Last Values POC Glucometer 128 UNITS (80-120) 02/15/19 11:38 lab pending Assessment: 02/15/19 11:56 alcohol withdrawal sx Plan: continue alcohol detox
[2019-02-15] MEDS: INSULIN SLIDING SCALE (NOVOLOG) 1 VIAL SQ SCH ×2 (18:05→22:18)
[2019-02-15] MEDS ORDERED: INSULIN SLIDING SCALE (NOVOLOG) 1 VIAL SQ SCH ×2 (22:00)
[2019-02-15] MEDS: THIAMINE HCL 100 MG TABLET (FP) PO SCH (22:14)
[2019-02-15] MEDS: LISINOPRIL 10 MG TABLET (FP) PO SCH (22:14)
[2019-02-15] MEDS: MELATONIN 5 MG TABLETS PO PRN (22:17)
[2019-02-15] MEDS: INSULIN (LEVEMIR) 100 UNITS/ML UNITS SQ SCH (22:18)
[2019-02-16] MEDS: chlordiazePOXIDE HCL 25 MG CAPSULE PO SCH ×4 (06:09→23:01)
[2019-02-16] MEDS ORDERED: INSULIN SLIDING SCALE (NOVOLOG) 1 VIAL SQ ONE ×2 (06:10→11:54)
[2019-02-16] MEDS: INSULIN SLIDING SCALE (NOVOLOG) 1 VIAL SQ SCH ×4 (07:01→22:47)
--- NOTE | 2019-02-16 10:18 | PN ---
S CIWA - CIWA Score Nausea/Vomitin-Mild Nausea/No Vomiting Muscle Tremors: 3 Anxiety: 2 Agitation: 3 Paroxysmal Sweats: 1-Minimal Palms Moist Orientation: 3-Disoriented Date>2 days Tacttile Disturbances: 0-None Auditory Disturbances: 0-None Visual Disturbances: 0-None Headache: 1-Very Mild CIWA-Ar Total Score: 14 B[facility] Progress Note (SOAP) Subjective: feeling better today less headache better concentration discuss sobriety with staff Objective: 02/16/19 10:18 Vital Signs Temperature 97.7 F 02/16/19 09:31 Pulse Rate 75 02/16/19 09:31 Respiratory Rate 18 02/16/19 09:31 Blood Pressure 128/80 02/16/19 09:31 O2 Sat by Pulse Oximetry (%) Laboratory Last Values POC Glucometer 371 UNITS (80-120) 02/16/19 06:05 lab pending Assessment: 02/16/19 10:19 withdrawal sx Plan: continue detox
[2019-02-16] MEDS: PRENATAL VITAMINS W/ FOLIC ACID TABLET (FP) PO SCH (10:19)
[2019-02-16] MEDS: LISINOPRIL 10 MG TABLET (FP) PO SCH ×2 (10:19→22:49)
[2019-02-16] MEDS: NICOTINE 21 MG/24 HOURS TOPICAL PATCH TD SCH (10:22)
[2019-02-16 10:23] LABS: HEMATOCRIT 42.6 % (35.4-49); HEMOGLOBIN 14.7 GM/dL (11.7-16.9); MCH 28.8 pg (25.7-33.7); MCHC 34.5 g/dl (32.0-35.9); MEAN CELL VOLUME 83.4 fl (80-96); MEAN PLT VOLUME 9.9 fl (7.5-11.1); PLATELET COUNT 141 K/MM3 (134-434); RDW 15.7 % (11.9-15.9); WHITE BLOOD COUNT 6.7 K/mm3 (4.0-10.0)
[2019-02-16 10:43] LABS: ALBUMIN 3.2 g/dl (3.4-5.0); ALK PHOS 88 U/L (45-117); ANION GAP 8 MMOL/L (8-16); BILIRUBIN,TOTAL 0.2 mg/dL (0.2-1); BLOOD UREA NITROGEN 31 mg/dL (7-18); CALCIUM 8.2 mg/dL (8.5-10.1); CHLORIDE 102 mmol/L (98-107); CO2 27 mmol/L (21-32); CREATININE 2.2 mg/dL (0.55-1.3); POTASSIUM 3.8 mmol/L (3.5-5.1); SGOT/AST 18 U/L (15-37); SGPT/ALT 23 U/L (13-61); SODIUM 137 mmol/L (136-145); TOT PROT 6.6 g/dl (6.4-8.2)
[2019-02-16 11:21] LABS: GLUCOSE,RANDOM 316 mg/dL (74-106)
[2019-02-16] MEDS ORDERED: INSULIN SLIDING SCALE (NOVOLOG) 1 VIAL SQ SCH (11:46)
[2019-02-16] MEDS ORDERED: INSULIN (NOVOLOG) ASPART 100 UNITS/ML 10ML VIAL SQ ONE (11:59)
[2019-02-16] MEDS: THIAMINE HCL 100 MG TABLET (FP) PO SCH (22:42)
[2019-02-16] MEDS: MELATONIN 5 MG TABLETS PO PRN (22:42)
[2019-02-16] MEDS: INSULIN (LEVEMIR) 100 UNITS/ML UNITS SQ SCH (22:45)
[2019-02-17] MEDS ORDERED: chlordiazePOXIDE HCL 10 MG CAPSULE PO PRN (05:00)
[2019-02-17] MEDS: chlordiazePOXIDE HCL 10 MG CAPSULE PO SCH ×4 (06:22→22:29)
[2019-02-17] MEDS: INSULIN SLIDING SCALE (NOVOLOG) 1 VIAL SQ SCH ×4 (06:28→22:27)
[2019-02-17] MEDS: LISINOPRIL 10 MG TABLET (FP) PO SCH ×2 (10:38→22:27)
[2019-02-17] MEDS: NICOTINE 21 MG/24 HOURS TOPICAL PATCH TD SCH (10:39)
[2019-02-17] MEDS: PRENATAL VITAMINS W/ FOLIC ACID TABLET (FP) PO SCH (10:39)
[2019-02-17] MEDS ORDERED: INSULIN (NOVOLOG) ASPART 100 UNITS/ML 10ML VIAL SQ ONE (11:30)
--- NOTE | 2019-02-17 11:30 | PN ---
S CIWA - CIWA Score Nausea/Vomitin-No Nausea/No Vomiting Muscle Tremors: 2 Anxiety: 2 Agitation: 2 Paroxysmal Sweats: 1-Minimal Palms Moist Orientation: 1-Uncertain about Date Tacttile Disturbances: 0-None Auditory Disturbances: 0-None Visual Disturbances: 0-None Headache: 1-Very Mild CIWA-Ar Total Score: 9 S Progress Note (SOAP) Subjective: feeling better less tremor patient refused AM medication elevation of bgm one dose 12 unit novolog now Objective: 02/17/19 11:32 Vital Signs Temperature 97.1 F L 02/17/19 09:15 Pulse Rate 88 02/17/19 09:15 Respiratory Rate 20 02/17/19 09:15 Blood Pressure 153/106 H 02/17/19 09:15 O2 Sat by Pulse Oximetry (%) Laboratory Last Values WBC 6.7 K/mm3 (4.0-10.0) 02/16/19 07:00 RBC 5.10 M/mm3 (4.00-5.60) 02/16/19 07:00 Hgb 14.7 GM/dL (11.7-16.9) 02/16/19 07:00 Hct 42.6 % (35.4-49) 02/16/19 07:00 MCV 83.4 fl (80-96) 02/16/19 07:00 MCH 28.8 pg (25.7-33.7) D 02/16/19 07:00 MCHC 34.5 g/dl (32.0-35.9) 02/16/19 07:00 RDW 15.7 % (11.9-15.9) 02/16/19 07:00 Plt Count 141 K/MM3 (134-434) D 02/16/19 07:00 MPV 9.9 fl (7.5-11.1) D 02/16/19 07:00 Sodium 137 mmol/L (136-145) 02/16/19 07:00 Potassium 3.8 mmol/L (3.5-5.1) 02/16/19 07:00 Chloride 102 mmol/L (98-107) 02/16/19 07:00 Carbon Dioxide 27 mmol/L (21-32) 02/16/19 07:00 Anion Gap 8 MMOL/L (8-16) 02/16/19 07:00 BUN 31 mg/dL (7-18) H 02/16/19 07:00 Creatinine 2.2 mg/dL (0.55-1.3) H 02/16/19 07:00 Creat Clearance w eGFR 31.47 (>60) 02/16/19 07:00 POC Glucometer 533 UNITS (80-120) 02/17/19 11:19 Random Glucose 316 mg/dL (74-106) H* 02/16/19 07:00 Calcium 8.2 mg/dL (8.5-10.1) L 02/16/19 07:00 Total Bilirubin 0.2 mg/dL (0.2-1) 02/16/19 07:00 AST 18 U/L (15-37) 02/16/19 07:00 ALT 23 U/L (13-61) 02/16/19 07:00 Alkaline Phosphatase 88 U/L (45-117) 02/16/19 07:00 Total Protein 6.6 g/dl (6.4-8.2) 02/16/19 07:00 Albumin 3.2 g/dl (3.4-5.0) L 02/16/19 07:00 RPR Titer Nonreactive (NONREACTIVE) 02/16/19 07:00 lab noted hgb a1c pending 02/17/19 11:33 Assessment: 02/17/19 11:33 mild alcohol withdrawal sx Plan: continue detox discuss risks of serum sugar elevation
[2019-02-17] MEDS: INSULIN (LEVEMIR) 100 UNITS/ML UNITS SQ SCH (22:26)
[2019-02-17] MEDS: THIAMINE HCL 100 MG TABLET (FP) PO SCH (22:27)
[2019-02-18] MEDS ORDERED: chlordiazePOXIDE HCL 10 MG CAPSULE PO SCH (05:00)
[2019-02-18 06:42] VITALS: BP 151/98; PULSE 79; TEMP 98
[2019-02-18] MEDS: INSULIN SLIDING SCALE (NOVOLOG) 1 VIAL SQ SCH (07:43)
--- NOTE | 2019-02-18 09:56 | DS ---
[facility] Detox Discharge Summary Admission Date: 02/14/19 Discharge Date: 02/18/19 - History Present History: Alcohol Dependence Additional Comments: 53 years old male admitted on 02/14/19 for alcohol withdrawal stabilization completed alcohol detox regimen aftercare primary care provider Dr. Arce Pertinent Past History: strong recommend the patient to bring in medication list to follow up appointment bring in lab report to follow up care discuss risks of glycemia and bp elevation - Physical Exam Results Vital Signs: Vital Signs Temperature 98.0 F 02/18/19 06:42 Pulse Rate 79 02/18/19 06:42 Respiratory Rate 18 02/18/19 06:42 Blood Pressure 151/98 02/18/19 06:42 O2 Sat by Pulse Oximetry (%) Pertinent Admission Physical Exam Findings: alcohol withdrawal sx Laboratory Last Values WBC 6.7 K/mm3 (4.0-10.0) 02/16/19 07:00 RBC 5.10 M/mm3 (4.00-5.60) 02/16/19 07:00 Hgb 14.7 GM/dL (11.7-16.9) 02/16/19 07:00 Hct 42.6 % (35.4-49) 02/16/19 07:00 MCV 83.4 fl (80-96) 02/16/19 07:00 MCH 28.8 pg (25.7-33.7) D 02/16/19 07:00 MCHC 34.5 g/dl (32.0-35.9) 02/16/19 07:00 RDW 15.7 % (11.9-15.9) 02/16/19 07:00 Plt Count 141 K/MM3 (134-434) D 02/16/19 07:00 MPV 9.9 fl (7.5-11.1) D 02/16/19 07:00 Sodium 137 mmol/L (136-145) 02/16/19 07:00 Potassium 3.8 mmol/L (3.5-5.1) 02/16/19 07:00 Chloride 102 mmol/L (98-107) 02/16/19 07:00 Carbon Dioxide 27 mmol/L (21-32) 02/16/19 07:00 Anion Gap 8 MMOL/L (8-16) 02/16/19 07:00 BUN 31 mg/dL (7-18) H 02/16/19 07:00 Creatinine 2.2 mg/dL (0.55-1.3) H 02/16/19 07:00 Creat Clearance w eGFR 31.47 (>60) 02/16/19 07:00 POC Glucometer 168 UNITS (80-120) 02/18/19 06:58 Random Glucose 316 mg/dL (74-106) H* 02/16/19 07:00 Hemoglobin A1c % 11.3 % (4.2-6.3) H 02/17/19 07:30 Calcium 8.2 mg/dL (8.5-10.1) L 02/16/19 07:00 Total Bilirubin 0.2 mg/dL (0.2-1) 02/16/19 07:00 AST 18 U/L (15-37) 02/16/19 07:00 ALT 23 U/L (13-61) 02/16/19 07:00 Alkaline Phosphatase 88 U/L (45-117) 02/16/19 07:00 Total Protein 6.6 g/dl (6.4-8.2) 02/16/19 07:00 Albumin 3.2 g/dl (3.4-5.0) L 02/16/19 07:00 RPR Titer Nonreactive (NONREACTIVE) 02/16/19 07:00 lab noted bun 31 creatinine 2.2 hemoglobin a1c 11.3 - Treatment Hospital Course: Detox Protocol Followed, Detoxed Safely, Responded well, Discharged Condition Good, Rehab Referral Accepted Patient has Accepted a Rehab Referral to: primary care provider - Medication Discharge Medications: Ambulatory Orders Insulin Glargine,Hum.rec.anlog [Lantus] 72 unit SQ HS 02/15/19 Lisinopril [Prinivil] 10 mg PO BID 02/15/19 - Diagnosis (1) Alcohol dependence with uncomplicated withdrawal Status: Acute (2) HTN (hypertension) Status: Chronic Qualifiers: Hypertension type: essential hypertension Qualified Code(s): I10 - Essential (primary) hypertension (3) IDDM (insulin dependent diabetes mellitus) Status: Chronic (4) Nicotine dependence Status: Acute Qualifiers: Nicotine product type: cigarettes Substance use status: in withdrawal Qualified Code(s): F17.213 - Nicotine dependence, cigarettes, with withdrawal (5) Positive PPD, treated Status: Resolved - AMA Did Patient Leave Against Medical Advice: No
== END 2019-02-18 09:15 | disposition home or self-care (01) | DRG 774 ==
LOC: YASAS 23:21 → Y3N 23:56
PROVIDERS: ADMIT Surgery; ATTEND Surgery
PROC: HZ2ZZZZ Detoxification Services for Substance Abuse Treatment (ICD-10-PCS; principal; 2019-02-14)
DX: F10.230 Alcohol dependence with withdrawal, uncomplicated (principal); F14.20 Cocaine dependence, uncomplicated; F17.213 Nicotine dependence, cigarettes, with withdrawal; F19.24 Other psychoactive substance dependence with psychoactive substance-induced mood disorder; I10 Essential (primary) hypertension; E11.9 Type 2 diabetes mellitus without complications; R76.11 Nonspecific reaction to tuberculin skin test without active tuberculosis; Z79.4 Long term (current) use of insulin; Z59.0 Homelessness
CPT/HCPCS: 36415; 80053; 82962; 83036; 85027; 86593; J0735

== ENCOUNTER 2019-04-28 16:10 | Inpatient (IN) | payer OTHER ==
[2019-04-28 19:26] VITALS: BMI 29.0
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
[2019-04-28] MEDS ORDERED: chlordiazePOXIDE HCL 10 MG CAPSULE PO PRN (20:20)
[2019-04-28] MEDS ORDERED: MAGNESIUM HYDROX 2400MG/30ML ORAL SUSPENSION 30 ML CUP PO PRN (20:20)
[2019-04-28] MEDS ORDERED: NICOTINE POLACRILEX 2 MG GUM BUC PRN (20:20)
[2019-04-28] MEDS ORDERED: IBUPROFEN 400 MG TABLET (FP) PO PRN (20:20)
[2019-04-28] MEDS ORDERED: MAG HYDROX/AL HYDROX/SIMETH 30 ML UNIT-DOSE CUP PO PRN (20:20)
[2019-04-28] MEDS ORDERED: MAGNESIUM CITRATE 300 ML BOTTLE PO PRN (20:20)
[2019-04-28] MEDS ORDERED: METHOCARBAMOL 500 MG TABLET PO PRN (20:20)
[2019-04-28] MEDS ORDERED: BISMUTH SUBSALICYLATE 524 MG/30 ML UD PO PRN (20:20)
[2019-04-28] MEDS ORDERED: ACETAMINOPHEN 325 MG TABLET (FP) PO PRN ×2 (20:20)
[2019-04-28] MEDS ORDERED: MENTHOL/PHENOL 1 EACH UD MM PRN (20:20)
[2019-04-28] MEDS: LISINOPRIL 10 MG TABLET (FP) PO SCH (21:32)
[2019-04-28] MEDS: chlordiazePOXIDE HCL 25 MG CAPSULE PO SCH (21:32)
[2019-04-28] MEDS: MELATONIN 5 MG TABLETS PO PRN (21:34)
[2019-04-28] MEDS: THIAMINE HCL 100 MG TABLET (FP) PO SCH (21:34)
[2019-04-29 00:47] LABS: URINE APPEARANCE CLEAR; URINE BILIRUBIN NEGATIVE (NEGATIVE); URINE COLOR YELLOW; URINE GLUCOSE (UA) 3+ (NEGATIVE); URINE KETONE NEGATIVE (NEGATIVE); URINE LEUK ESTERASE NEGATIVE (NEGATIVE); URINE NITRITE NEGATIVE (NEGATIVE); URINE PROTEIN 2+ (NEGATIVE); URINE UROBILINOGEN 0.2 mg/dL (0.2-1.0)
[2019-04-29 04:45] LABS: URINE RBC 0.1 /hpf (0-4); URINE WBC 0.1 /hpf (0-5)
[2019-04-29 04:46] LABS: URINE BACTERIA 1.7 /hpf (NEGATIVE)
[2019-04-29] MEDS: chlordiazePOXIDE HCL 25 MG CAPSULE PO SCH ×2 (05:09→14:05)
[2019-04-29] MEDS: INSULIN SLIDING SCALE (NOVOLOG) 1 VIAL SQ SCH ×3 (06:25→16:31)
--- NOTE | 2019-04-29 10:01 | PN ---
S CIWA - CIWA Score Nausea/Vomitin-Mild Nausea/No Vomiting Muscle Tremors: 3 Anxiety: 2 Agitation: 3 Paroxysmal Sweats: 1-Minimal Palms Moist Orientation: 0-Oriented Tacttile Disturbances: 0-None Auditory Disturbances: 0-None Visual Disturbances: 0-None Headache: 1-Very Mild CIWA-Ar Total Score: 11 S Progress Note (SOAP) Subjective: headaches tremor discuss alcohol related hyperglycemia and bp elevation Objective: 04/29/19 10:00 Vital Signs Temperature 98.9 F 04/29/19 09:26 Pulse Rate 69 04/29/19 09:26 Respiratory Rate 20 04/29/19 09:26 Blood Pressure 133/79 04/29/19 09:26 O2 Sat by Pulse Oximetry (%) Laboratory Last Values POC Glucometer 424 UNITS (80-120) 04/29/19 05:08 Urine Color Yellow 04/28/19 21:55 Urine Appearance Clear 04/28/19 21:55 Urine pH 5.0 (5.0-8.0) 04/28/19 21:55 Ur Specific [place] 1.026 (1.010-1.035) 04/28/19 21:55 Urine Protein 2+ (NEGATIVE) H 04/28/19 21:55 Urine Glucose (UA) 3+ (NEGATIVE) H 04/28/19 21:55 Urine Ketones Negative (NEGATIVE) 04/28/19 21:55 Urine Blood Negative (NEGATIVE) 04/28/19 21:55 Urine Nitrite Negative (NEGATIVE) 04/28/19 21:55 Urine Bilirubin Negative (NEGATIVE) 04/28/19 21:55 Urine Urobilinogen 0.2 mg/dL (0.2-1.0) 04/28/19 21:55 Ur Leukocyte Esterase Negative (NEGATIVE) 04/28/19 21:55 Urine WBC (Auto) 0.1 /hpf (0-5) 04/28/19 21:55 Urine RBC (Auto) 0.1 /hpf (0-4) 04/28/19 21:55 Urine Casts (Auto) 0.0 /lpf (0-8) 04/28/19 21:55 U Epithel Cells (Auto) 0.0 /HPF (0-5/HPF) 04/28/19 21:55 Urine Bacteria (Auto) 1.7 /hpf (NEGATIVE) 04/28/19 21:55 04/29/19 10:01 lab pending Assessment: 04/29/19 10:01 alcohol withdrawal sx Plan: continue detox
[2019-04-29] MEDS: PRENATAL VITAMINS W/ FOLIC ACID TABLET (FP) PO SCH (10:08)
[2019-04-29] MEDS: LISINOPRIL 10 MG TABLET (FP) PO SCH ×2 (10:08→22:08)
[2019-04-29] MEDS: NICOTINE 21 MG/24 HOURS TOPICAL PATCH TD SCH (10:08)
[2019-04-29 10:51] LABS: HEMATOCRIT 43.7 % (35.4-49); MCH 26.5 pg (25.7-33.7); MEAN CELL VOLUME 82.7 fl (80-96); MEAN PLT VOLUME 11.4 fl (7.5-11.1); PLATELET COUNT 120 K/MM3 (134-434); RBC 5.28 M/mm3 (4.00-5.60); RDW 14.2 % (11.9-15.9); WHITE BLOOD COUNT 6.3 K/mm3 (4.0-10.0)
[2019-04-29 11:01] LABS: ALBUMIN 3.3 g/dl (3.4-5.0); BILIRUBIN,TOTAL 0.3 mg/dL (0.2-1); CREATININE 2.1 mg/dL (0.55-1.3); POTASSIUM 4.1 mmol/L (3.5-5.1); TOT PROT 6.7 g/dl (6.4-8.2)
--- NOTE | 2019-04-29 11:25 | CONSULT ---
[facility] Psychiatric Consult - Data Date of interview: 04/29/19 Admission source: [facility] Identifying data: THREE visits at bedside. Patient refused to be interviewed by psychiatrist. " I am too tired. I need some sleep ". Nursing staff is made aware.
[2019-04-29] MEDS: THIAMINE HCL 100 MG TABLET (FP) PO SCH (22:08)
[2019-04-29] MEDS: chlordiazePOXIDE 5 MG CAPSULE PO SCH (22:09)
[2019-04-29] MEDS: MELATONIN 5 MG TABLETS PO PRN (22:14)
[2019-04-29] MEDS: INSULIN (LEVEMIR) 100 UNITS/ML UNITS SQ SCH (23:05)
[2019-04-30] MEDS: chlordiazePOXIDE 5 MG CAPSULE PO SCH ×2 (06:38→15:40)
[2019-04-30] MEDS: NICOTINE 21 MG/24 HOURS TOPICAL PATCH TD SCH (10:44)
[2019-04-30] MEDS: LISINOPRIL 10 MG TABLET (FP) PO SCH ×2 (10:44→22:54)
[2019-04-30] MEDS: PRENATAL VITAMINS W/ FOLIC ACID TABLET (FP) PO SCH (10:44)
[2019-04-30] MEDS ORDERED: PROCHLORPERAZINE MALEATE 5 MG TABLET PO PRN (14:53)
--- NOTE | 2019-04-30 15:33 | PN ---
S CIWA - CIWA Score Nausea/Vomitin Muscle Tremors: 3 Anxiety: 3 Agitation: 0-Normal Activity Paroxysmal Sweats: No Perspiration Orientation: 0-Oriented Tacttile Disturbances: 0-None Auditory Disturbances: 0-None Visual Disturbances: 2-Mild Sensitivity Headache: 2-Mild CIWA-Ar Total Score: 13 S Progress Note (SOAP) Subjective: Tremors, Constipation, Fatigue, Nausea, Interrupted Sleep, H/A. Objective: PATIENT A & O X 3, OBSERVED AMBULATING ON UNIT UNASSISTED. IN NO ACUTE DISTRESS. 04/30/19 15:32 Vital Signs Temperature 97.6 F 04/30/19 13:44 Pulse Rate 76 04/30/19 13:44 Respiratory Rate 20 04/30/19 13:44 Blood Pressure 120/77 04/30/19 13:44 O2 Sat by Pulse Oximetry (%) Laboratory Tests 04/28/19 04/29/19 04/29/19 21:55 05:08 07:00 WBC 6.3 RBC 5.28 Hgb 14.0 Hct 43.7 MCV 82.7 MCH 26.5 MCHC 32.0 RDW 14.2 Plt Count 120 L MPV 11.4 H D Sodium Potassium Chloride Carbon Dioxide Anion Gap BUN Creatinine Est GFR (CKD-EPI)AfAm Est GFR (CKD-EPI)NonAf POC Glucometer 424 Random Glucose Calcium Total Bilirubin AST ALT Alkaline Phosphatase Total Protein Albumin Urine Color Yellow Urine Appearance Clear Urine pH 5.0 Ur Specific [place] 1.026 Urine Protein 2+ H Urine Glucose (UA) 3+ H Urine Ketones Negative Urine Blood Negative Urine Nitrite Negative Urine Bilirubin Negative Urine Urobilinogen 0.2 Ur Leukocyte Esterase Negative Urine WBC (Auto) 0.1 Urine RBC (Auto) 0.1 Urine Casts (Auto) 0.0 U Epithel Cells (Auto) 0.0 Urine Bacteria (Auto) 1.7 Valproic Acid RPR Titer 04/29/19 04/29/19 04/29/19 07:00 07:00 07:00 WBC RBC Hgb Hct MCV MCH MCHC RDW Plt Count MPV Sodium 138 Potassium 4.1 Chloride 100 Carbon Dioxide 30 Anion Gap 7 L BUN 28 H Creatinine 2.1 H Est GFR (CKD-EPI)AfAm 40.15 Est GFR (CKD-EPI)NonAf 34.64 POC Glucometer Random Glucose 421 H* Calcium 9.0 Total Bilirubin 0.3 AST 41 H ALT 55 Alkaline Phosphatase 98 Total Protein 6.7 Albumin 3.3 L Urine Color Urine Appearance Urine pH Ur Specific [place] Urine Protein Urine Glucose (UA) Urine Ketones Urine Blood Urine Nitrite Urine Bilirubin Urine Urobilinogen Ur Leukocyte Esterase Urine WBC (Auto) Urine RBC (Auto) Urine Casts (Auto) U Epithel Cells (Auto) Urine Bacteria (Auto) Valproic Acid 5.7 L RPR Titer Nonreactive 04/29/19 04/29/19 11:15 16:25 WBC RBC Hgb Hct MCV MCH MCHC RDW Plt Count MPV Sodium Potassium Chloride Carbon Dioxide Anion Gap BUN Creatinine Est GFR (CKD-EPI)AfAm Est GFR (CKD-EPI)NonAf POC Glucometer 394 372 Random Glucose Calcium Total Bilirubin AST ALT Alkaline Phosphatase Total Protein Albumin Urine Color Urine Appearance Urine pH Ur Specific [place] Urine Protein Urine Glucose (UA) Urine Ketones Urine Blood Urine Nitrite Urine Bilirubin Urine Urobilinogen Ur Leukocyte Esterase Urine WBC (Auto) Urine RBC (Auto) Urine Casts (Auto) U Epithel Cells (Auto) Urine Bacteria (Auto) Valproic Acid RPR Titer LABS NOTED. RESULT OF HGB A1C PENDING. 04/30/19 15:38 Assessment: 04/30/19 15:35 WITHDRAWAL SYMPTOMS. HYPERGLYCEMIA. THROMBOCYTOPENIA. 04/30/19 15:37 Plan: CONTINUE DETOX. INCREASE DAILY PO FLUID INTAKE. PATIENT SCHEDULED FOR D/C TOMORROW AM.
--- NOTE | 2019-04-30 15:42 | PN ---
[facility] Progress Note Note: IBUPROFEN AND MAGNESIUM-CONTAINING MEDS. D/C'D DUE TO ABNORMAL ADMISSION RENAL LAB VALUES. Sosa MERINO RETAIL DIRECTOR
[2019-04-30] MEDS: INSULIN SLIDING SCALE (NOVOLOG) 1 VIAL SQ SCH (17:58)
[2019-04-30] MEDS ORDERED: chlordiazePOXIDE HCL 10 MG CAPSULE PO PRN (21:00)
[2019-04-30] MEDS: chlordiazePOXIDE HCL 10 MG CAPSULE PO SCH (22:53)
[2019-04-30] MEDS: THIAMINE HCL 100 MG TABLET (FP) PO SCH (22:54)
[2019-04-30] MEDS: INSULIN (LEVEMIR) 100 UNITS/ML UNITS SQ SCH (22:54)
[2019-05-01] MEDS: chlordiazePOXIDE HCL 10 MG CAPSULE PO SCH ×2 (05:39→12:14)
[2019-05-01] MEDS ORDERED: INSULIN SLIDING SCALE (NOVOLOG) 1 VIAL SQ ONE (07:51)
[2019-05-01] MEDS: INSULIN SLIDING SCALE (NOVOLOG) 1 VIAL SQ SCH ×2 (07:57→12:11)
[2019-05-01] MEDS: PRENATAL VITAMINS W/ FOLIC ACID TABLET (FP) PO SCH (11:14)
[2019-05-01] MEDS: LISINOPRIL 10 MG TABLET (FP) PO SCH (11:14)
[2019-05-01] MEDS: NICOTINE 21 MG/24 HOURS TOPICAL PATCH TD SCH (11:14)
[2019-05-01 13:38] VITALS: BP 156/92; PULSE 68; TEMP 97
--- NOTE | 2019-05-01 16:43 | DS ---
[facility] Detox Discharge Summary Admission Date: 04/28/19 Discharge Date: 05/01/19 - History Present History: Alcohol Dependence, Cocaine Dependence Additional Comments: PATIENT GOING TO [facility] ([facility]) FOR AFTERCARE. PATIENT WAS DISCHARGED FROM DETOX UNIT TO BE TAKEN OVER TO REHAB UNIT IN STABLE MEDICAL CONDITION. Pertinent Past History: HTN, IDDM, History of Bipolar Disorder, Nicotine Dependence, Use Of A cane As an Ambulatory, History Of Osteoarthritis Of Right Ankle, Thrombocytopenia ( Noted On Detox Admission Laboratory Assessment), Azotemia (Noted On Detox Admission Laboratory Assessment). - Physical Exam Results Vital Signs: Vital Signs Temperature 97.0 F L 05/01/19 13:38 Pulse Rate 68 05/01/19 13:38 Respiratory Rate 18 05/01/19 13:38 Blood Pressure 156/92 05/01/19 13:38 O2 Sat by Pulse Oximetry (%) Pertinent Admission Physical Exam Findings: WITHDRAWAL SYMPTOMS. Laboratory Tests 04/28/19 04/29/19 04/29/19 21:55 05:08 07:00 WBC 6.3 RBC 5.28 Hgb 14.0 Hct 43.7 MCV 82.7 MCH 26.5 MCHC 32.0 RDW 14.2 Plt Count 120 L MPV 11.4 H D Sodium Potassium Chloride Carbon Dioxide Anion Gap BUN Creatinine Est GFR (CKD-EPI)AfAm Est GFR (CKD-EPI)NonAf POC Glucometer 424 Random Glucose Hemoglobin A1c % Calcium Total Bilirubin AST ALT Alkaline Phosphatase Total Protein Albumin Urine Color Yellow Urine Appearance Clear Urine pH 5.0 Ur Specific [place] 1.026 Urine Protein 2+ H Urine Glucose (UA) 3+ H Urine Ketones Negative Urine Blood Negative Urine Nitrite Negative Urine Bilirubin Negative Urine Urobilinogen 0.2 Ur Leukocyte Esterase Negative Urine WBC (Auto) 0.1 Urine RBC (Auto) 0.1 Urine Casts (Auto) 0.0 U Epithel Cells (Auto) 0.0 Urine Bacteria (Auto) 1.7 Valproic Acid RPR Titer 04/29/19 04/29/19 04/29/19 07:00 07:00 07:00 WBC RBC Hgb Hct MCV MCH MCHC RDW Plt Count MPV Sodium 138 Potassium 4.1 Chloride 100 Carbon Dioxide 30 Anion Gap 7 L BUN 28 H Creatinine 2.1 H Est GFR (CKD-EPI)AfAm 40.15 Est GFR (CKD-EPI)NonAf 34.64 POC Glucometer Random Glucose 421 H* Hemoglobin A1c % Calcium 9.0 Total Bilirubin 0.3 AST 41 H ALT 55 Alkaline Phosphatase 98 Total Protein 6.7 Albumin 3.3 L Urine Color Urine Appearance Urine pH Ur Specific [place] Urine Protein Urine Glucose (UA) Urine Ketones Urine Blood Urine Nitrite Urine Bilirubin Urine Urobilinogen Ur Leukocyte Esterase Urine WBC (Auto) Urine RBC (Auto) Urine Casts (Auto) U Epithel Cells (Auto) Urine Bacteria (Auto) Valproic Acid 5.7 L RPR Titer Nonreactive 04/29/19 04/29/19 04/30/19 11:15 16:25 07:30 WBC RBC Hgb Hct MCV MCH MCHC RDW Plt Count MPV Sodium Potassium Chloride Carbon Dioxide Anion Gap BUN Creatinine Est GFR (CKD-EPI)AfAm Est GFR (CKD-EPI)NonAf POC Glucometer 394 372 Random Glucose Hemoglobin A1c % 13.0 H Calcium Total Bilirubin AST ALT Alkaline Phosphatase Total Protein Albumin Urine Color Urine Appearance Urine pH Ur Specific [place] Urine Protein Urine Glucose (UA) Urine Ketones Urine Blood Urine Nitrite Urine Bilirubin Urine Urobilinogen Ur Leukocyte Esterase Urine WBC (Auto) Urine RBC (Auto) Urine Casts (Auto) U Epithel Cells (Auto) Urine Bacteria (Auto) Valproic Acid RPR Titer 04/30/19 04/30/19 05/01/19 16:57 21:26 05:38 WBC RBC Hgb Hct MCV MCH MCHC RDW Plt Count MPV Sodium Potassium Chloride Carbon Dioxide Anion Gap BUN Creatinine Est GFR (CKD-EPI)AfAm Est GFR (CKD-EPI)NonAf POC Glucometer 478 388 220 Random Glucose Hemoglobin A1c % Calcium Total Bilirubin AST ALT Alkaline Phosphatase Total Protein Albumin Urine Color Urine Appearance Urine pH Ur Specific [place] Urine Protein Urine Glucose (UA) Urine Ketones Urine Blood Urine Nitrite Urine Bilirubin Urine Urobilinogen Ur Leukocyte Esterase Urine WBC (Auto) Urine RBC (Auto) Urine Casts (Auto) U Epithel Cells (Auto) Urine Bacteria (Auto) Valproic Acid RPR Titer 05/01/19 12:06 WBC RBC Hgb Hct MCV MCH MCHC RDW Plt Count MPV Sodium Potassium Chloride Carbon Dioxide Anion Gap BUN Creatinine Est GFR (CKD-EPI)AfAm Est GFR (CKD-EPI)NonAf POC Glucometer 479 Random Glucose Hemoglobin A1c % Calcium Total Bilirubin AST ALT Alkaline Phosphatase Total Protein Albumin Urine Color Urine Appearance Urine pH Ur Specific [place] Urine Protein Urine Glucose (UA) Urine Ketones Urine Blood Urine Nitrite Urine Bilirubin Urine Urobilinogen Ur Leukocyte Esterase Urine WBC (Auto) Urine RBC (Auto) Urine Casts (Auto) U Epithel Cells (Auto) Urine Bacteria (Auto) Valproic Acid RPR Titer LABS NOTED. - Treatment Hospital Course: Detox Protocol Followed, Detoxed Safely, Responded well, Discharged Condition Good, Rehab Referral Accepted Patient has Accepted a Rehab Referral to: [facility] ([place], [place]). - Medication Discharge Medications: Ambulatory Orders Insulin Glargine,Hum.rec.anlog [Lantus] 72 unit SQ HS 02/15/19 Lisinopril [Prinivil] 10 mg PO BID 02/15/19 Divalproex [Depakote -] 500 mg PO BID 04/28/19 Haloperidol [Haldol -] 5 mg PO BID 04/28/19 - Diagnosis (1) Azotemia Status: Acute (2) Alcohol dependence with uncomplicated withdrawal Status: Acute (3) Nicotine dependence Status: Acute Qualifiers: Nicotine product type: cigarettes Substance use status: in withdrawal Qualified Code(s): F17.213 - Nicotine dependence, cigarettes, with withdrawal (4) Thrombocytopenia Status: Acute (5) Cocaine dependence Status: Chronic Qualifiers: Substance use status: uncomplicated Qualified Code(s): F14.20 - Cocaine dependence, uncomplicated (6) HTN (hypertension) Status: Chronic Qualifiers: Hypertension type: essential hypertension Qualified Code(s): I10 - Essential (primary) hypertension (7) IDDM (insulin dependent diabetes mellitus) Status: Chronic (8) Use of cane as ambulatory aid Status: Chronic - AMA Did Patient Leave Against Medical Advice: No
== END 2019-05-01 14:55 | disposition other institution (70) | DRG 773 ==
LOC: YASAS 16:10 → Y3N 20:48
PROVIDERS: ADMIT Surgery; ATTEND Surgery
PROC: HZ2ZZZZ Detoxification Services for Substance Abuse Treatment (ICD-10-PCS; principal; 2019-04-28)
DX: F10.230 Alcohol dependence with withdrawal, uncomplicated (principal); F11.20 Opioid dependence, uncomplicated; F14.20 Cocaine dependence, uncomplicated; F12.20 Cannabis dependence, uncomplicated; D69.6 Thrombocytopenia, unspecified; I10 Essential (primary) hypertension; E11.9 Type 2 diabetes mellitus without complications; Z79.4 Long term (current) use of insulin; R79.89 Other specified abnormal findings of blood chemistry; Z99.89 Dependence on other enabling machines and devices; Z59.0 Homelessness
CPT/HCPCS: 36415; 80053; 80164; 81003; 82962; 83036; 85027; 86593

== ENCOUNTER 2019-05-01 14:50 | Inpatient (IN) | payer OTHER ==
[2019-05-01] MEDS ORDERED: guaiFENesin 200 MG/10 ML 10 ML UNIT-DOSE CUPS PO PRN (16:50)
[2019-05-01] MEDS ORDERED: LOPERAMIDE HCL 2 MG CAPSULE PO PRN (16:50)
[2019-05-01] MEDS ORDERED: MENTHOL/PHENOL 1 EACH UD MM PRN (16:50)
[2019-05-01] MEDS ORDERED: ACETAMINOPHEN 325 MG TABLET (FP) PO PRN (16:50)
[2019-05-01] MEDS ORDERED: NICOTINE POLACRILEX 2 MG GUM BUC PRN (16:50)
--- NOTE | 2019-05-01 16:57 | HP ---
[facility] Re[facility] Assess/Revision - Admission History Admitted to Rehab from: [facility] Date of Admission to Rehab: 05/01/2019 - Vital signs Vital Signs: Vital Signs Period Temp Pulse Resp BP Sys/Rivera Pulse Ox Last 24 Hr 98.4 F 64 18 161/92 - Findings Detox History & Physical reviewed: Yes Concur with findings: Yes Comments/Additional Findings: PATIENT'S MEDICAL / MEDICATION HISTORY REVIEWED PRIOR TO DISCHARGE FROM DETOX UNIT. LEVEMIR INSULIN WAS ORDERED AT 30 UNITS SQ HS FOR PATIENT WHILE HE WAS ADMITTED TO DETOX UNIT. WILL CONTINUE THIS AND HAVE PATIENT EVALUATED BY COVERING MEDICAL PROVIDER GOING FORWARD TO DETERMINE IF ANY SUBSEQUENT DOSE TITRATIONS ARE NECESSARY. PATIENT WAS DISCHARGED FROM DETOX UNIT TO BE TAKEN OVER TO REHAB UNIT IN STABLE MEDICAL CONDITION. Inpatient Rehab Admission - Rehab Decision to Admit Inpatient rehab admission?: Yes - Initial Determination Are CD services needed?: Yes Free of communicable disease: Yes Not in need of hospitalization: Yes - Rehab Admission Criteria Previous failed treatment: Yes Poor recovery environment: Yes Comorbidities: Yes Lacks judgement: Yes Patient is meeting Inpatient Rehab admission criteria:: Yes
[2019-05-01] MEDS: LISINOPRIL 10 MG TABLET (FP) PO SCH (21:44)
[2019-05-01] MEDS: THIAMINE HCL 100 MG TABLET (FP) PO SCH (21:44)
[2019-05-01] MEDS: INSULIN (LEVEMIR) 100 UNITS/ML UNITS SQ SCH (21:46)
[2019-05-01] MEDS ORDERED: MELATONIN 5 MG TABLETS PO PRN (22:00)
[2019-05-02] MEDS ORDERED: INSULIN (NOVOLOG) ASPART 100 UNITS/ML 10ML VIAL ONE ×2 (06:26→21:57)
[2019-05-02] MEDS: INSULIN SLIDING SCALE (NOVOLOG) 1 VIAL SQ SCH ×3 (06:27→16:57)
[2019-05-02] MEDS: NICOTINE 21 MG/24 HOURS TOPICAL PATCH TD SCH (09:51)
[2019-05-02] MEDS: PRENATAL VITAMINS W/ FOLIC ACID TABLET (FP) PO SCH (09:51)
[2019-05-02] MEDS: LISINOPRIL 10 MG TABLET (FP) PO SCH ×2 (09:51→21:30)
--- NOTE | 2019-05-02 15:11 | CONSULT ---
[facility] Psychiatric Consult - Data Date of interview: 05/02/19 Admission source: Transfer from [address] [place] [address]. Identifying data: Came to interview the patient. Approached by nurse Horan. Mr Santillan refused to meet with psychiatrist. Nursing staff is made aware.
[2019-05-02] MEDS: INSULIN (LEVEMIR) 100 UNITS/ML UNITS SQ SCH (21:30)
[2019-05-02] MEDS: THIAMINE HCL 100 MG TABLET (FP) PO SCH (21:30)
[2019-05-03] MEDS ORDERED: INSULIN (NOVOLOG) ASPART 100 UNITS/ML 10ML VIAL ONE ×2 (06:31→22:00)
[2019-05-03] MEDS: INSULIN SLIDING SCALE (NOVOLOG) 1 VIAL SQ SCH ×3 (06:39→16:48)
[2019-05-03] MEDS: LISINOPRIL 10 MG TABLET (FP) PO SCH ×2 (09:56→21:42)
[2019-05-03] MEDS: PRENATAL VITAMINS W/ FOLIC ACID TABLET (FP) PO SCH (09:56)
[2019-05-03] MEDS: NICOTINE 21 MG/24 HOURS TOPICAL PATCH TD SCH (09:57)
[2019-05-03] MEDS: THIAMINE HCL 100 MG TABLET (FP) PO SCH (21:42)
[2019-05-03] MEDS: INSULIN (LEVEMIR) 100 UNITS/ML UNITS SQ SCH (21:42)
[2019-05-04] MEDS: INSULIN SLIDING SCALE (NOVOLOG) 1 VIAL SQ SCH ×3 (06:44→16:42)
[2019-05-04] MEDS ORDERED: INSULIN (NOVOLOG) ASPART 100 UNITS/ML 10ML VIAL ONE ×3 (06:47→22:05)
[2019-05-04] MEDS: PRENATAL VITAMINS W/ FOLIC ACID TABLET (FP) PO SCH (09:49)
[2019-05-04] MEDS: LISINOPRIL 10 MG TABLET (FP) PO SCH ×2 (09:49→22:07)
[2019-05-04] MEDS: NICOTINE 21 MG/24 HOURS TOPICAL PATCH TD SCH (09:50)
[2019-05-04] MEDS: THIAMINE HCL 100 MG TABLET (FP) PO SCH (22:07)
[2019-05-04] MEDS: INSULIN (LEVEMIR) 100 UNITS/ML UNITS SQ SCH (22:07)
[2019-05-05] MEDS: INSULIN SLIDING SCALE (NOVOLOG) 1 VIAL SQ SCH ×3 (07:04→16:30)
[2019-05-05] MEDS: PRENATAL VITAMINS W/ FOLIC ACID TABLET (FP) PO SCH (09:37)
[2019-05-05] MEDS: NICOTINE 21 MG/24 HOURS TOPICAL PATCH TD SCH (09:37)
[2019-05-05] MEDS: LISINOPRIL 10 MG TABLET (FP) PO SCH ×2 (09:37→21:52)
[2019-05-05] MEDS ORDERED: INSULIN (NOVOLOG) ASPART 100 UNITS/ML 10ML VIAL ONE ×2 (11:58→16:31)
[2019-05-05] MEDS: THIAMINE HCL 100 MG TABLET (FP) PO SCH (21:52)
[2019-05-05] MEDS: INSULIN (LEVEMIR) 100 UNITS/ML UNITS SQ SCH (21:52)
[2019-05-06] MEDS ORDERED: cloNIDine HCL 0.1 MG TABLET PO ONE (06:45)
[2019-05-06] MEDS ORDERED: INSULIN (NOVOLOG) ASPART 100 UNITS/ML 10ML VIAL ONE ×2 (06:56→11:37)
[2019-05-06] MEDS: INSULIN SLIDING SCALE (NOVOLOG) 1 VIAL SQ SCH ×3 (07:07→16:56)
[2019-05-06] MEDS: NICOTINE 21 MG/24 HOURS TOPICAL PATCH TD SCH (10:19)
[2019-05-06] MEDS: PRENATAL VITAMINS W/ FOLIC ACID TABLET (FP) PO SCH (10:19)
[2019-05-06] MEDS: LISINOPRIL 10 MG TABLET (FP) PO SCH (10:19)
--- NOTE | 2019-05-06 10:24 | PN ---
[facility] Progress Note Note: BP elevated in AM, but patient was asymptomatic. Clonidine one time dose given. Repeat BP at 10:15 was withing normal limits. Dosing schedule of lisinopril changed to 6 am and 6pm tonight, with a one time dose of lisinopril tonight at 2200 hours.
[2019-05-06] MEDS: THIAMINE HCL 100 MG TABLET (FP) PO SCH (21:47)
[2019-05-06] MEDS: INSULIN (LEVEMIR) 100 UNITS/ML UNITS SQ SCH (21:47)
[2019-05-06] MEDS ORDERED: LISINOPRIL 10 MG TABLET (FP) PO ONE (22:00)
[2019-05-07] MEDS ORDERED: LISINOPRIL 10 MG TABLET (FP) PO SCH (06:00)
[2019-05-07] MEDS ORDERED: INSULIN (NOVOLOG) ASPART 100 UNITS/ML 10ML VIAL ONE ×3 (06:46→16:39)
[2019-05-07] MEDS: INSULIN SLIDING SCALE (NOVOLOG) 1 VIAL SQ SCH ×3 (06:46→16:39)
[2019-05-07] MEDS: PRENATAL VITAMINS W/ FOLIC ACID TABLET (FP) PO SCH (09:42)
[2019-05-07] MEDS: NICOTINE 21 MG/24 HOURS TOPICAL PATCH TD SCH (09:42)
[2019-05-07] MEDS: LISINOPRIL 10 MG TABLET (FP) PO SCH ×2 (10:26→21:19)
[2019-05-07] MEDS: INSULIN (LEVEMIR) 100 UNITS/ML UNITS SQ SCH (21:18)
[2019-05-07] MEDS: THIAMINE HCL 100 MG TABLET (FP) PO SCH (21:19)
[2019-05-08] MEDS ORDERED: INSULIN (NOVOLOG) ASPART 100 UNITS/ML 10ML VIAL ONE ×3 (06:51→17:04)
[2019-05-08] MEDS: INSULIN SLIDING SCALE (NOVOLOG) 1 VIAL SQ SCH ×3 (06:54→16:49)
[2019-05-08] MEDS: LISINOPRIL 10 MG TABLET (FP) PO SCH ×2 (09:57→21:52)
[2019-05-08] MEDS: NICOTINE 21 MG/24 HOURS TOPICAL PATCH TD SCH (09:58)
[2019-05-08] MEDS: PRENATAL VITAMINS W/ FOLIC ACID TABLET (FP) PO SCH (09:58)
[2019-05-08] MEDS: THIAMINE HCL 100 MG TABLET (FP) PO SCH (21:52)
[2019-05-08] MEDS: INSULIN (LEVEMIR) 100 UNITS/ML UNITS SQ SCH (21:53)
[2019-05-09] MEDS: INSULIN SLIDING SCALE (NOVOLOG) 1 VIAL SQ SCH ×3 (06:22→16:41)
[2019-05-09] MEDS: PRENATAL VITAMINS W/ FOLIC ACID TABLET (FP) PO SCH (09:34)
[2019-05-09] MEDS: NICOTINE 21 MG/24 HOURS TOPICAL PATCH TD SCH (09:35)
[2019-05-09] MEDS: LISINOPRIL 10 MG TABLET (FP) PO SCH ×2 (09:35→21:10)
[2019-05-09] MEDS ORDERED: INSULIN (NOVOLOG) ASPART 100 UNITS/ML 10ML VIAL ONE (11:33)
[2019-05-09] MEDS: THIAMINE HCL 100 MG TABLET (FP) PO SCH (21:10)
[2019-05-09] MEDS: INSULIN (LEVEMIR) 100 UNITS/ML UNITS SQ SCH (21:14)
[2019-05-10] MEDS: INSULIN SLIDING SCALE (NOVOLOG) 1 VIAL SQ SCH ×3 (06:09→16:37)
[2019-05-10] MEDS: PRENATAL VITAMINS W/ FOLIC ACID TABLET (FP) PO SCH (09:18)
[2019-05-10] MEDS: LISINOPRIL 10 MG TABLET (FP) PO SCH ×2 (09:18→21:38)
[2019-05-10] MEDS: NICOTINE 21 MG/24 HOURS TOPICAL PATCH TD SCH (09:18)
[2019-05-10] MEDS ORDERED: INSULIN (NOVOLOG) ASPART 100 UNITS/ML 10ML VIAL ONE (11:30)
[2019-05-10] MEDS: THIAMINE HCL 100 MG TABLET (FP) PO SCH (21:38)
[2019-05-10] MEDS: INSULIN (LEVEMIR) 100 UNITS/ML UNITS SQ SCH (21:40)
[2019-05-11] MEDS ORDERED: INSULIN (NOVOLOG) ASPART 100 UNITS/ML 10ML VIAL ONE ×2 (06:36→11:25)
[2019-05-11] MEDS: INSULIN SLIDING SCALE (NOVOLOG) 1 VIAL SQ SCH ×3 (06:45→16:51)
[2019-05-11] MEDS: LISINOPRIL 10 MG TABLET (FP) PO SCH ×2 (09:46→21:45)
[2019-05-11] MEDS: PRENATAL VITAMINS W/ FOLIC ACID TABLET (FP) PO SCH (09:46)
[2019-05-11] MEDS: NICOTINE 21 MG/24 HOURS TOPICAL PATCH TD SCH (09:46)
[2019-05-11] MEDS: THIAMINE HCL 100 MG TABLET (FP) PO SCH (21:45)
[2019-05-11] MEDS: INSULIN (LEVEMIR) 100 UNITS/ML UNITS SQ SCH (22:00)
[2019-05-12] MEDS ORDERED: INSULIN (NOVOLOG) ASPART 100 UNITS/ML 10ML VIAL ONE ×3 (06:45→19:31)
[2019-05-12] MEDS ORDERED: cloNIDine HCL 0.1 MG TABLET PO ONE (06:53)
[2019-05-12] MEDS: INSULIN SLIDING SCALE (NOVOLOG) 1 VIAL SQ SCH ×3 (06:55→16:35)
--- NOTE | 2019-05-12 06:55 | PN ---
[facility] Progress Note Note: Patient's blood pressure this morning is B/P 160/106. Patient is asymptomatic Vital Signs Temperature 98 F 05/12/19 06:50 Pulse Rate 71 05/12/19 06:50 Respiratory Rate 18 05/12/19 06:50 Blood Pressure 160/106 H 05/12/19 06:50 O2 Sat by Pulse Oximetry (%) Action: Clonidine 0.1mg tablet oral ordered stat
[2019-05-12] MEDS: PRENATAL VITAMINS W/ FOLIC ACID TABLET (FP) PO SCH (10:23)
[2019-05-12] MEDS: LISINOPRIL 10 MG TABLET (FP) PO SCH (10:23)
[2019-05-12] MEDS: NICOTINE 21 MG/24 HOURS TOPICAL PATCH TD SCH (10:23)
[2019-05-12] MEDS ORDERED: HYDROCHLOROTHIAZIDE 25 MG TABLET (FP) PO ONE (12:16)
[2019-05-12] MEDS: THIAMINE HCL 100 MG TABLET (FP) PO SCH (21:22)
[2019-05-12] MEDS: LISINOPRIL 20 MG TABLET (FP) PO SCH (21:22)
[2019-05-12] MEDS: INSULIN (LEVEMIR) 100 UNITS/ML UNITS SQ SCH (21:22)
[2019-05-13] MEDS ORDERED: INSULIN (NOVOLOG) ASPART 100 UNITS/ML 10ML VIAL ONE ×3 (06:42→16:25)
[2019-05-13] MEDS: INSULIN SLIDING SCALE (NOVOLOG) 1 VIAL SQ SCH ×3 (06:42→16:37)
[2019-05-13] MEDS: PRENATAL VITAMINS W/ FOLIC ACID TABLET (FP) PO SCH (10:03)
[2019-05-13] MEDS: NICOTINE 21 MG/24 HOURS TOPICAL PATCH TD SCH (10:03)
[2019-05-13] MEDS: LISINOPRIL 20 MG TABLET (FP) PO SCH ×2 (10:03→21:34)
[2019-05-13] MEDS: THIAMINE HCL 100 MG TABLET (FP) PO SCH (21:34)
[2019-05-13] MEDS: INSULIN (LEVEMIR) 100 UNITS/ML UNITS SQ SCH (21:34)
[2019-05-14] MEDS: INSULIN SLIDING SCALE (NOVOLOG) 1 VIAL SQ SCH ×3 (06:09→16:35)
[2019-05-14] MEDS ORDERED: INSULIN (NOVOLOG) ASPART 100 UNITS/ML 10ML VIAL ONE ×2 (06:10→11:48)
[2019-05-14] MEDS ORDERED: LISINOPRIL 20 MG TABLET (FP) PO ONE (09:30)
[2019-05-14] MEDS: PRENATAL VITAMINS W/ FOLIC ACID TABLET (FP) PO SCH (09:56)
[2019-05-14] MEDS: NICOTINE 21 MG/24 HOURS TOPICAL PATCH TD SCH (09:57)
--- NOTE | 2019-05-14 14:22 | PN ---
[facility] Progress Note Note: Blood glucose consistently elevated. On Lantus 72 units at home. PE:no s/s of hyperglycemia. Plan: added levemir 30 units in the AM.
[2019-05-14] MEDS: THIAMINE HCL 100 MG TABLET (FP) PO SCH (21:35)
[2019-05-14] MEDS: LISINOPRIL 20 MG TABLET (FP) PO SCH (21:36)
[2019-05-14] MEDS ORDERED: INSULIN (LEVEMIR) 100 UNITS/ML UNITS SQ ONE (22:00)
[2019-05-15] MEDS ORDERED: LISINOPRIL 20 MG TABLET (FP) PO SCH (06:00)
[2019-05-15] MEDS: LISINOPRIL 20 MG TABLET (FP) PO SCH ×2 (06:16→21:41)
[2019-05-15] MEDS ORDERED: INSULIN (NOVOLOG) ASPART 100 UNITS/ML 10ML VIAL ONE ×3 (06:54→16:43)
[2019-05-15] MEDS: INSULIN (LEVEMIR) 100 UNITS/ML UNITS SQ SCH ×2 (06:54→21:43)
[2019-05-15] MEDS: INSULIN SLIDING SCALE (NOVOLOG) 1 VIAL SQ SCH ×3 (06:54→16:42)
[2019-05-15] MEDS: PRENATAL VITAMINS W/ FOLIC ACID TABLET (FP) PO SCH (10:13)
[2019-05-15] MEDS: NICOTINE 21 MG/24 HOURS TOPICAL PATCH TD SCH (10:14)
[2019-05-15] MEDS: THIAMINE HCL 100 MG TABLET (FP) PO SCH (21:41)
[2019-05-16] MEDS: LISINOPRIL 20 MG TABLET (FP) PO SCH ×2 (06:02→21:32)
[2019-05-16] MEDS ORDERED: INSULIN (NOVOLOG) ASPART 100 UNITS/ML 10ML VIAL ONE ×3 (06:40→16:24)
[2019-05-16] MEDS: INSULIN (LEVEMIR) 100 UNITS/ML UNITS SQ SCH ×2 (06:41→21:33)
[2019-05-16] MEDS: INSULIN SLIDING SCALE (NOVOLOG) 1 VIAL SQ SCH ×3 (06:41→16:47)
[2019-05-16] MEDS: PRENATAL VITAMINS W/ FOLIC ACID TABLET (FP) PO SCH (09:37)
[2019-05-16] MEDS: NICOTINE 21 MG/24 HOURS TOPICAL PATCH TD SCH (09:37)
[2019-05-16] MEDS: THIAMINE HCL 100 MG TABLET (FP) PO SCH (21:33)
[2019-05-17] MEDS: LISINOPRIL 20 MG TABLET (FP) PO SCH ×2 (06:23→21:12)
[2019-05-17] MEDS ORDERED: INSULIN (NOVOLOG) ASPART 100 UNITS/ML 10ML VIAL ONE ×3 (07:26→16:57)
[2019-05-17] MEDS: INSULIN SLIDING SCALE (NOVOLOG) 1 VIAL SQ SCH ×3 (07:27→16:58)
[2019-05-17] MEDS: INSULIN (LEVEMIR) 100 UNITS/ML UNITS SQ SCH ×2 (07:27→21:13)
[2019-05-17] MEDS: PRENATAL VITAMINS W/ FOLIC ACID TABLET (FP) PO SCH (09:39)
[2019-05-17] MEDS: NICOTINE 21 MG/24 HOURS TOPICAL PATCH TD SCH (09:40)
--- NOTE | 2019-05-17 11:16 | PN ---
[facility] Progress Note Note: Vital Signs Temperature 98.4 F 05/17/19 09:32 Pulse Rate 78 05/17/19 09:32 Respiratory Rate 19 05/17/19 09:32 Blood Pressure 169/93 05/17/19 09:32 O2 Sat by Pulse Oximetry (%) repeat bp 159/93 asymptomatic,no complaint state that he is also on norvasc 5 mgs po daily will add norvasc 5 mgs po daily bp monitoring
[2019-05-17] MEDS: amLODIPine BESYLATE 5 MG TABLET (FP) PO SCH (12:07)
[2019-05-17] MEDS: THIAMINE HCL 100 MG TABLET (FP) PO SCH (21:12)
[2019-05-18] MEDS: INSULIN (LEVEMIR) 100 UNITS/ML UNITS SQ SCH ×2 (06:11→21:31)
[2019-05-18] MEDS ORDERED: INSULIN (NOVOLOG) ASPART 100 UNITS/ML 10ML VIAL ONE ×3 (06:13→16:45)
[2019-05-18] MEDS: INSULIN SLIDING SCALE (NOVOLOG) 1 VIAL SQ SCH ×3 (06:13→16:46)
[2019-05-18] MEDS: LISINOPRIL 20 MG TABLET (FP) PO SCH ×2 (06:13→21:31)
[2019-05-18] MEDS: amLODIPine BESYLATE 5 MG TABLET (FP) PO SCH (10:23)
[2019-05-18] MEDS: PRENATAL VITAMINS W/ FOLIC ACID TABLET (FP) PO SCH (10:23)
[2019-05-18] MEDS: NICOTINE 21 MG/24 HOURS TOPICAL PATCH TD SCH (10:23)
--- NOTE | 2019-05-18 13:15 | PN ---
[facility] Progress Note Note: DISCHARGE REHAB NOTE: PATIENT FOR D/C TOMORROW TO PROJECT RENEWAL AND IS ON WAITING LIST FOR [facility]. 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 PATIENT IS MEDICALLY STABLE AT THIS TIME AND DENIES SI/HI. 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 PATIENT ENCOURAGED TO SEEK MEDICAL ATTENTION IF WITHDRAWAL SYMPTOMS AND MEDICAL SYMPTOMS OF CHEST PAIN, SOB AND DIZZINESS OCCUR. Ambulatory Orders Insulin Glargine,Hum.rec.anlog [Lantus] 72 unit SQ HS 02/15/19 Divalproex [Depakote -] 500 mg PO BID 04/28/19 Haloperidol [Haldol -] 5 mg PO BID 04/28/19 Amlodipine Besylate [Norvasc -] 5 mg PO DAILY #14 tablet 05/18/19 Lisinopril 20 mg PO BID #30 tablet 05/18/19 Ambulatory Orders Insulin Glargine,Hum.rec.anlog [Lantus] 72 unit SQ HS 02/15/19 Divalproex [Depakote -] 500 mg PO BID 04/28/19 Haloperidol [Haldol -] 5 mg PO BID 04/28/19 Amlodipine Besylate [Norvasc -] 5 mg PO DAILY #14 tablet 05/18/19 Lisinopril 20 mg PO BID #30 tablet 05/18/19 Home Medications Medication Instructions Recorded Insulin Glargine,Hum.rec.anlog 72 unit SQ HS 02/15/19 [Lantus] Divalproex [Depakote -] 500 mg PO BID 04/28/19 Haloperidol [Haldol -] 5 mg PO BID 04/28/19 Amlodipine Besylate [Norvasc -] 5 mg PO DAILY #14 tablet 05/18/19 Lisinopril 20 mg PO BID #30 tablet 05/18/19 Ambulatory Orders Insulin Glargine,Hum.rec.anlog [Lantus] 72 unit SQ HS 02/15/19 Divalproex [Depakote -] 500 mg PO BID 04/28/19 Haloperidol [Haldol -] 5 mg PO BID 04/28/19 Amlodipine Besylate [Norvasc -] 5 mg PO DAILY #14 tablet 05/18/19 Lisinopril 20 mg PO BID #30 tablet 05/18/19 Vital Signs Temperature 97.9 F 05/18/19 07:38 Pulse Rate 69 05/18/19 09:30 Respiratory Rate 18 05/18/19 09:30 Blood Pressure 151/109 H 05/18/19 09:30 O2 Sat by Pulse Oximetry (%) Laboratory Tests 05/01/19 05/02/19 05/02/19 21:41 06:11 11:48 POC Glucometer 592 250 299 05/02/19 05/02/19 05/03/19 16:55 21:28 06:27 POC Glucometer 373 375 301 05/03/19 05/03/19 05/03/19 11:57 16:46 21:40 POC Glucometer 416 302 462 05/04/19 05/04/19 05/04/19 06:22 11:52 16:41 POC Glucometer 278 278 330 05/04/19 05/05/19 05/05/19 21:40 06:08 11:56 POC Glucometer 449 233 345 05/05/19 05/05/19 05/06/19 16:29 20:43 06:27 POC Glucometer 384 370 216 05/06/19 05/06/19 05/06/19 11:33 16:53 21:45 POC Glucometer 310 247 334 05/07/19 05/07/19 05/07/19 05:56 11:55 16:37 POC Glucometer 221 361 304 05/07/19 05/08/19 05/08/19 21:16 06:04 11:37 POC Glucometer 362 254 270 05/08/19 05/08/19 05/09/19 16:48 21:52 06:20 POC Glucometer 378 314 214 05/09/19 05/09/19 05/09/19 11:31 16:41 21:13 POC Glucometer 275 360 477 05/10/19 05/10/19 05/10/19 06:07 11:28 16:35 POC Glucometer 213 285 303 05/10/19 05/11/19 05/11/19 21:39 06:03 11:22 POC Glucometer 283 196 354 05/11/19 05/11/19 05/12/19 16:48 21:43 06:06 POC Glucometer 188 377 233 05/12/19 05/12/19 05/12/19 11:55 16:33 21:20 POC Glucometer 428 217 422 05/13/19 05/13/19 05/13/19 06:02 11:42 16:35 POC Glucometer 185 279 282 05/13/19 05/14/19 05/14/19 21:32 06:06 11:44 POC Glucometer 441 261 254 05/14/19 05/14/19 05/15/19 16:33 21:37 06:15 POC Glucometer 327 363 261 05/15/19 05/15/19 05/15/19 11:37 16:41 21:39 POC Glucometer 205 354 330 05/16/19 05/16/19 05/16/19 05:51 11:38 16:45 POC Glucometer 224 256 399 05/16/19 05/17/19 05/17/19 21:30 06:24 11:30 POC Glucometer 259 199 315 05/17/19 05/17/19 05/18/19 16:56 21:10 06:09 POC Glucometer 206 267 225 05/18/19 11:51 POC Glucometer 376
[2019-05-18] MEDS: THIAMINE HCL 100 MG TABLET (FP) PO SCH (21:31)
[2019-05-19] MEDS: LISINOPRIL 20 MG TABLET (FP) PO SCH (06:02)
[2019-05-19] MEDS ORDERED: INSULIN (NOVOLOG) ASPART 100 UNITS/ML 10ML VIAL ONE (06:39)
[2019-05-19] MEDS: INSULIN SLIDING SCALE (NOVOLOG) 1 VIAL SQ SCH (06:39)
[2019-05-19] MEDS: INSULIN (LEVEMIR) 100 UNITS/ML UNITS SQ SCH (06:39)
[2019-05-19 06:56] VITALS: TEMP 97.8
[2019-05-19 09:23] VITALS: BP 141/88; PULSE 75
[2019-05-19] MEDS: PRENATAL VITAMINS W/ FOLIC ACID TABLET (FP) PO SCH (09:46)
[2019-05-19] MEDS: amLODIPine BESYLATE 5 MG TABLET (FP) PO SCH (09:46)
[2019-05-19] MEDS: NICOTINE 21 MG/24 HOURS TOPICAL PATCH TD SCH (09:47)
== END 2019-05-19 09:50 | disposition home or self-care (01) | DRG 772 ==
LOC: YASAS 14:50 → Y3W 14:51
PROVIDERS: ADMIT Neuromusculoskeletal Medicine & OMM; ATTEND Neuromusculoskeletal Medicine & OMM
PROC: HZ42ZZZ Group Counseling for Substance Abuse Treatment, Cognitive-Behavioral (ICD-10-PCS; principal; 2019-05-01)
DX: F10.20 Alcohol dependence, uncomplicated (principal); F14.20 Cocaine dependence, uncomplicated; F17.213 Nicotine dependence, cigarettes, with withdrawal; I10 Essential (primary) hypertension; E11.65 Type 2 diabetes mellitus with hyperglycemia; R26.2 Difficulty in walking, not elsewhere classified; Z99.89 Dependence on other enabling machines and devices; Z79.4 Long term (current) use of insulin; Z59.0 Homelessness
CPT/HCPCS: 82962; J0735